=== PATIENT | male | born 1990 | race Caucasian/White ===

== ENCOUNTER → 2022-12-03 08:30 | Outpatient (BNVA) | payer OTHER, SELFPAY | PROVIDERS: Visit Provider Internal Medicine ==

== ENCOUNTER → 2024-02-19 16:02 | Outpatient (BNVA) | payer OTHER, SELFPAY | PROVIDERS: PCP Nurse Practitioner Family; Visit Provider Clinical Nurse Specialist Psychiatric/Mental Health ==

== ENCOUNTER → 2024-03-09 08:52 | Outpatient (BNVA) | payer OTHER, SELFPAY | PROVIDERS: PCP Nurse Practitioner Family; Visit Provider Clinical Nurse Specialist Psychiatric/Mental Health | DX: R55 Syncope and collapse (principal); R51.9 Headache, unspecified; R29.818 Other symptoms and signs involving the nervous system; G44.209 Tension-type headache, unspecified, not intractable; R07.9 Chest pain, unspecified ==

== ENCOUNTER 2024-06-24 15:45 | Emergency (ER) | payer OTHER, SELFPAY ==
--- NOTE | ~2024-06-24 | XR_ITS ---
EXAMINATION: XR CHEST CLINICAL INFORMATION: pain COMPARISON: Chest x-ray 11/29/2022 TECHNIQUE: 2 views of the chest were obtained. FINDINGS: Lungs are well-expanded and clear acute process. There is slight hyperlucency suggestive of air trapping. Heart size and poor vascularity is normal. No gross bony vascularity.. XR/XR chest 2V IMPRESSION: No acute cardiothoracic process seen. Suspect air trapping. No change from previous exam 11/29/2022 Electronically signed by: Adam Jansen MD 06/24/2024 05:28 PM EST
--- NOTE | 2024-06-24 15:47 | ECG_ITS ---
Test Reason : chest pain Blood Pressure : */* mmHG Vent. Rate : 86 BPM Atrial Rate : 86 BPM P-R Int : 148 ms QRS Dur : 88 ms QT Int : 344 ms P-R-T Axes : 48 21 44 degrees QTcB Int : 411 ms Normal sinus rhythm Normal ECG When compared with ECG of 17-Feb-2024 10:50, No significant change was found Referred By: Kartik Roberts Electronically Signed By: KAYLAH PARKS
[2024-06-24 15:57] VITALS: BP 144/96; PULSE 85; RESP 16; TEMP 37.2; O2SAT 98; BMI 25.1
--- NOTE | 2024-06-24 15:58 | ED.GENADULT ---
HPI - General Adult General Chief complaint: Chest Pain Stated complaint: Sharp pain on chest Related Data Previous Rx's ?Medication ?Instructions ?Recorded hydroxyzine HCl 25 mg tablet 25 mg PO TID PRN anxiety #90 tabs 06/10/24 cyclobenzaprine 5 mg tablet 5 mg PO BEDTIME #14 tabs 06/21/24 lidocaine 5 % topical patch 1 patch topical DAILY #30 ea 06/21/24 meloxicam 15 mg tablet 15 mg PO DAILY #30 tabs 06/21/24 atorvastatin 20 mg tablet 20 mg PO BEDTIME #90 tabs 07/08/24 Allergies Allergy/AdvReac Type Severity Reaction Status Date / Time sumatriptan Allergy Severe Tachycardia, Verified 06/24/24 15:59 facial numbness atorvastatin AdvReac Mild pain Verified 06/24/24 15:59 pollen Allergy Unknown rASH, sob Uncoded 05/17/24 15:26 tuna Allergy Unknown anaphylaxis Uncoded 05/17/24 15:26 [facility] Past Medical History Medical History (Updated 08/03/24 @ 17:59 by Kartik Roberts) Chronic pain in left shoulder COVID Tension headache Asthma No known health problems Surgical History S/P appendectomy Family History Family History Father Hypertension Diabetes Substance use disorder Mother No problems noted. Paternal Grandfather Diabetes Paternal Grandfather Substance use disorder Maternal Aunt Substance use disorder Maternal Grandmother Substance use disorder Paternal Aunt Substance use disorder Social History Social History Household Members: Spouse and Family Housing: House Do you presently have visiting nurse or other home services: No Alcohol intake: never Patient Tobacco Use Status: Former Tobacco user e-Cigarette/Vaping Use: Currently Using Second Hand Smoke Exposure: No service: No Current occupational status: employed Cognitive needs: No Hearing needs: No Vision needs: No Physical Exam ED Vital Signs: BMI result Body Mass Index 25.1 Course Course Course Narrative: RMNayeli, this is a rapid medical exam performed by Davon Roberts please refer to primary provider for complete H&P- 34-year-old male presents for evaluation of chest pain. He reports he had lightheaded nauseous while he was flying a drawn earlier today. He still has 7/10 chest pain but it is improved from about an hour ago. Plan for labs, EKG Medical Decision Making Lab Data 06/24/24 16:25 06/24/24 16:25 Labs: Lab Results 06/24/24 Range/Units 16:25 WBC 9.1 (4.8-10.8) X10*3/uL RBC 5.26 (4.60-5.80) X10*6/uL Hgb 14.6 (14.0-18.0) g/dl Hct 42.6 (42.0-52.0) % MCV 81.0 (80.0-98.0) fL MCH 27.8 (27.0-33.0) pg MCHC 34.3 (31.0-36.0) g/dl RDW 11.9 (11.0-16.0) % Plt Count 222 (160-400) X10*3/uL MPV 10.9 (9.4-12.4) fL Immature Gran % (Auto) 0.2 (0.0-0.4) % Neut % (Auto) 55.1 (45-73) % Lymph % (Auto) 39.0 (20-40) % [place] % (Auto) 5.0 (2-11) % Eos % (Auto) 0.5 (0-4) % Baso % (Auto) 0.2 (0-2) % Lymph # (Auto) 3.6 (1.2-4.9) X10*3/uL [place] # (Auto) 0.5 (0.1-1.2) X10*3/uL Eos # (Auto) 0.1 (0.0-0.4) X10*3/uL Baso # (Auto) 0.0 (0.0-0.2) X10*3/uL Abs Immat Gran (auto) 0.02 (0.00-0.03) X10*3/uL Absolute Neuts (auto) 5.0 (2.0-8.3) x10*3/uL Absolute Nucleated RBC 0.000 (0.0-0.012) X10*3/uL Nucleated RBC % (auto) 0.0 (0.0-0.2) /100WBC PT 12.9 H (10.9-12.4) SEC INR 1.1 (0.9-1.1) Sodium 140 (135-145) mmol/L Potassium 3.8 (3.3-5.1) mmol/L Chloride 106 (96-108) mmol/L Carbon Dioxide 26 (22-29) mmol/L Anion Gap 12 (12-20) BUN 13 (9-16) mg/dL Creatinine 1.03 (0.5-1.4) mg/dL Estim Creat Clear Calc 76.5 Estimated GFR > 60 Random Glucose 88 (60-115) mg/dL Calcium 9.8 D (8.4-10.2) mg/dL Total Bilirubin 0.5 (0.0-1.0) mg/dL AST 27 (5-37) U/L ALT 30 (0-40) U/L Alkaline Phosphatase 49 (39-117) U/L Troponin I High Sens < 2.7 (<3.5-35.0) ng/L Total Protein 8.4 H (6.5-8.0) g/dL Albumin 4.8 (3.5-5.0) g/dL Lipase 24 (8-78) U/L Influenza Type A (PCR) NEGATIVE (Negative) Influenza Type B (PCR) NEGATIVE (Negative) RSV RNA Qual (PCR) NEGATIVE (Negative) SARS-CoV-2 RNA (RT-PCR) NEGATIVE (Negative) Discharge Plan Discharge Clinical Impression: Chest pain Patient Disposition: Left W/O Completing Treatment Prescriptions: No Action hydroxyzine HCl 25 mg tablet 25 mg PO TID PRN (Reason: anxiety) Qty: 90 2RF meloxicam 15 mg tablet 15 mg PO DAILY Qty: 30 0RF lidocaine 5 % adhesive patch,medicated 1 patch topical DAILY Qty: 30 0RF Rx Instructions: leave on most painful area for up to 12 hrs cyclobenzaprine 5 mg tablet 5 mg PO BEDTIME Qty: 14 0RF atorvastatin 20 mg tablet 20 mg PO BEDTIME Qty: 90 0RF Discharge Date/Time: 06/24/24 20:57
[2024-06-24 16:31] LABS: MANUAL DIFF FLAG NO
[2024-06-24 16:33] LABS: Basophils Percent Auto 0.2 % (0-2); Eosinophils Absolute Auto 0.1 X10*3/uL (0.0-0.4); Eosinophils Percent Auto 0.5 % (0-4); Hematocrit 42.6 % (42.0-52.0); Hemoglobin 14.6 g/dl (14.0-18.0); Imm Gran Abs Auto 0.02 X10*3/uL (0.00-0.03); Imm Gran Pct Auto 0.2 % (0.0-0.4); Lymphocytes Absolute Auto 3.6 X10*3/uL (1.2-4.9); Mean Corpuscular HGB Conc 34.3 g/dl (31.0-36.0); Mean Corpuscular Hemoglobin 27.8 pg (27.0-33.0); Mean Platelet Volume 10.9 fL (9.4-12.4); Monocytes Absolute Auto 0.5 X10*3/uL (0.1-1.2); Neutrophils Percent Auto 55.1 % (45-73); Platelet Count 222 X10*3/uL (160-400); Red Blood Count 5.26 X10*6/uL (4.60-5.80); Red Cell Distribution Width 11.9 % (11.0-16.0); White Blood Count 9.1 X10*3/uL (4.8-10.8)
[2024-06-24 16:38] LABS: INTERNATIONAL NORM RATIO 1.1 (0.9-1.1); Prothrombin Time 12.9 SEC (10.9-12.4)
[2024-06-24 17:03] LABS: Troponin-I High Sensitivity < 2.7 ng/L (<3.5-35.0)
[2024-06-24 17:04] LABS: Alanine Aminotransferase 30 U/L (0-40); Albumin Level 4.8 g/dL (3.5-5.0); Alkaline Phosphatase 49 U/L (39-117); Anion Gap 12 (12-20); Aspartate Amino Transferase 27 U/L (5-37); Bilirubin Total 0.5 mg/dL (0.0-1.0); Blood Urea Nitrogen 13 mg/dL (9-16); Calcium 9.8 mg/dL (8.4-10.2); Carbon Dioxide 26 mmol/L (22-29); Chloride 106 mmol/L (96-108); Creatinine Clr Calc Pharmacy 76.5; Estimated Glomerular Filt Rate > 60; Glucose Random 88 mg/dL (60-115); Lipase 24 U/L (8-78); Potassium 3.8 mmol/L (3.3-5.1); Sodium 140 mmol/L (135-145); Total Protein 8.4 g/dL (6.5-8.0)
[2024-06-24 17:31] LABS: Influenza A PCR NEGATIVE (Negative); Influenza B PCR NEGATIVE (Negative); Resp Syncy Virus RNA Qual PCR NEGATIVE (Negative); SARS COV2 PCR INHOUSE NEGATIVE (Negative)
== END 2024-06-24 20:57 | disposition left against medical advice (07) ==
PROVIDERS: Physician Assistant; Emergency Provider Emergency Medicine; PCP Nurse Practitioner Family
DX: R07.9 Chest pain, unspecified (principal); Z03.818 Encounter for observation for suspected exposure to other biological agents ruled out
CPT/HCPCS: 0241U; 71046; 80053; 83690; 84484; 85025; 85610; 93005; 99283

== ENCOUNTER → 2024-07-08 09:22 | Outpatient (BNVA) | payer OTHER, SELFPAY | PROVIDERS: PCP Nurse Practitioner Family; Visit Provider Clinical Nurse Specialist Psychiatric/Mental Health | DX: F41.9 Anxiety disorder, unspecified (principal) ==

== ENCOUNTER 2024-08-16 07:00 | Outpatient (RCR) | payer OTHER, SELFPAY ==
--- NOTE | 2024-08-16 07:54 | MHC.PT.DC ---
[facility] [place] Office [place] Office [place] Office [address] Zeina Brandt [address] [phone] F: [phone] F: [phone] F: [phone] F: [phone] Physical Therapy Discharge Report Diagnosis: This is a 34 yo male presenting to skilled PT with a script for L shoulder pain. Date of Surgery: Date of Evaluation: 07/30/24 Date of Discharge: 08/16/24 Treatments to Date: 6 Cancellations to Date: 0 No Shows to Date: 0 Discharge Status: Recommend MD Follow-up Discharge Summary: 08/16: Patient has come to sessions of PT without improvement in pain and he may now have more pain. We talked about calling PCP today to follow up with an MRI. He demos 95 degs flexion, 50 abduction, 45 ER. MMT flexion 4, abduction 3-, ER 4-, IR 5, extension 3-. His pain can range up to a 10/10 at the worst and increases with lighting, pushing and squeezing. I'd recommend following up with PCP for further management, ? MRI. Electronically signed by: Melissa Comer PT Please sign and return to therapist. Thank you for your referral.
== END 2024-09-16 07:44 | disposition home or self-care (01) ==
LOC: HO.PTCHIC 07:00
PROVIDERS: PCP Nurse Practitioner Family; Visit Provider Nurse Practitioner Family
DX: M25.512 Pain in left shoulder (principal); G89.29 Other chronic pain
CPT/HCPCS: 97014; 97110; 97140; 97162

== ENCOUNTER 2024-08-17 18:05 | Emergency (ER) | payer OTHER, SELFPAY ==
--- NOTE | ~2024-08-17 | XR_ITS ---
CLINICAL HISTORY: pain 1 view chest x-ray Comparison: CR/SR - XR CHEST 2V - 06/24/24 16:16 EST Findings: No consolidation or effusion. Normal size heart. No acute fracture. IMPRESSION: 1. No acute findings. This document has been electronically signed by: Erik Carrasco MD on 08/17/2024 19:15:47
--- NOTE | 2024-08-17 18:07 | ECG_ITS ---
Test Reason : cp Blood Pressure : */* mmHG Vent. Rate : 72 BPM Atrial Rate : 72 BPM P-R Int : 136 ms QRS Dur : 94 ms QT Int : 356 ms P-R-T Axes : 54 39 50 degrees QTcB Int : 389 ms Normal sinus rhythm Normal ECG No previous ECGs available Referred By: Generic ED Physician Electronically Signed By: JESUS GONSALES MD
[2024-08-17 18:26] VITALS: BP 118/91; PULSE 74; RESP 18; TEMP 36.7; O2SAT 99; BMI 25.4
--- NOTE | 2024-08-17 18:31 | ED.GENADULT ---
HPI - General Adult General Chief complaint: Chest Pain Stated complaint: Chest pain Related Data Previous Rx's ?Medication ?Instructions ?Recorded hydroxyzine HCl 25 mg tablet 25 mg PO TID PRN anxiety #90 tabs 06/10/24 cyclobenzaprine 5 mg tablet 5 mg PO BEDTIME #14 tabs 06/21/24 lidocaine 5 % topical patch 1 patch topical DAILY #30 ea 06/21/24 meloxicam 15 mg tablet 15 mg PO DAILY #30 tabs 06/21/24 atorvastatin 20 mg tablet 20 mg PO BEDTIME #90 tabs 07/08/24 Allergies Allergy/AdvReac Type Severity Reaction Status Date / Time sumatriptan Allergy Severe Tachycardia, Verified 08/17/24 18:29 facial numbness atorvastatin AdvReac Mild pain Verified 08/17/24 18:29 pollen Allergy Unknown rASH, sob Uncoded 08/11/24 14:51 tuna Allergy Unknown anaphylaxis Uncoded 08/11/24 14:51 [facility] Past Medical History Medical History (Updated 08/17/24 @ 19:34 by MEGAN Cabrales) Chronic pain in left shoulder COVID Tension headache Asthma No known health problems Surgical History (Updated 08/11/24 @ 14:51 by Karon Meier CNA) S/P appendectomy Family History Family History (System 08/11/24 @ 14:51 by Karon Meier CNA) Father Hypertension Diabetes Substance use disorder Mother No problems noted. Paternal Grandfather Diabetes Paternal Grandfather Substance use disorder Maternal Aunt Substance use disorder Maternal Grandmother Substance use disorder Paternal Aunt Substance use disorder Social History Social History (System 08/11/24 @ 14:51 by Karon Meier CNA) Household Members: Spouse and Family Housing: House Do you presently have visiting nurse or other home services: No Alcohol intake: never Patient Tobacco Use Status: Former Tobacco user e-Cigarette/Vaping Use: Currently Using Second Hand Smoke Exposure: No service: No Current occupational status: employed Cognitive needs: No Hearing needs: No Vision needs: No Physical Exam ED Vital Signs: Vital Signs - 24 hr 08/17/24 18:26 Temperature 98.1 F Pulse Rate 74 Respiratory Rate 18 Blood Pressure 118/91 H Pulse Oximetry 99 Oxygen Delivery Method Room Air BMI result Body Mass Index 25.4 Course Course Course Narrative: This is a rapid medical exam performed by Nicole Guallpa PA-C. The patient is a 34-year-old male with a history of anxiety who presents with chest pain. Patient states he has not been feeling well, after work he went home to take a nap. When he woke, he felt as if his ?kids were jumping on his chest?. Patient was not have symptoms at this time. Denies recent cough or cold symptoms, he does not perform significant physical activity that could have caused chest wall strain. He does admit to being anxious. On exam his lungs are clear to auscultation is vitals are stable. We will be screening basic labs cardiac enzymes EKG and chest x-ray. Patient was stable and can return to the waiting room pending his full medical assessment. Medical Decision Making Lab Data 08/17/24 18:39 08/17/24 18:39 Labs: Lab Results 08/17/24 Range/Units 18:39 WBC 9.9 (4.8-10.8) X10*3/uL RBC 5.31 (4.60-5.80) X10*6/uL Hgb 14.8 (14.0-18.0) g/dl Hct 42.9 (42.0-52.0) % MCV 80.8 (80.0-98.0) fL MCH 27.9 (27.0-33.0) pg MCHC 34.5 (31.0-36.0) g/dl RDW 12.1 (11.0-16.0) % Plt Count 225 (160-400) X10*3/uL MPV 11.2 (9.4-12.4) fL Immature Gran % (Auto) 0.2 (0.0-0.4) % Neut % (Auto) 39.8 L (45-73) % Lymph % (Auto) 51.5 H (20-40) % [place] % (Auto) 5.8 (2-11) % Eos % (Auto) 2.1 (0-4) % Baso % (Auto) 0.6 (0-2) % Lymph # (Auto) 5.1 H (1.2-4.9) X10*3/uL [place] # (Auto) 0.6 (0.1-1.2) X10*3/uL Eos # (Auto) 0.2 (0.0-0.4) X10*3/uL Baso # (Auto) 0.1 (0.0-0.2) X10*3/uL Abs Immat Gran (auto) 0.02 (0.00-0.03) X10*3/uL Absolute Neuts (auto) 3.9 (2.0-8.3) x10*3/uL Absolute Nucleated RBC 0.000 (0.0-0.012) X10*3/uL Nucleated RBC % (auto) 0.0 (0.0-0.2) /100WBC Sodium 140 (135-145) mmol/L Potassium 4.1 (3.3-5.1) mmol/L Chloride 109 H (96-108) mmol/L Carbon Dioxide 26 (22-29) mmol/L Anion Gap 9 L (12-20) BUN 14 (9-16) mg/dL Creatinine 0.83 (0.5-1.4) mg/dL Estim Creat Clear Calc 91.0 Estimated GFR > 60 Random Glucose 88 (60-115) mg/dL Calcium 9.5 (8.4-10.2) mg/dL Magnesium 2.1 (1.6-2.6) mg/dL Total Bilirubin 0.3 (0.0-1.0) mg/dL AST 27 (5-37) U/L ALT 38 (0-40) U/L Alkaline Phosphatase 57 (39-117) U/L Troponin I High Sens < 2.7 (<3.5-35.0) ng/L Total Protein 7.6 (6.5-8.0) g/dL Albumin 4.5 (3.5-5.0) g/dL Lipase 24 (8-78) U/L Influenza Type A (PCR) NEGATIVE (Negative) Influenza Type B (PCR) NEGATIVE (Negative) RSV RNA Qual (PCR) NEGATIVE (Negative) SARS-CoV-2 RNA (RT-PCR) NEGATIVE (Negative) Discharge Plan Discharge Clinical Impression: Chest pain Patient Disposition: Left Without Being Seen Prescriptions: No Action hydroxyzine HCl 25 mg tablet 25 mg PO TID PRN (Reason: anxiety) Qty: 90 2RF meloxicam 15 mg tablet 15 mg PO DAILY Qty: 30 0RF lidocaine 5 % adhesive patch,medicated 1 patch topical DAILY Qty: 30 0RF Rx Instructions: leave on most painful area for up to 12 hrs cyclobenzaprine 5 mg tablet 5 mg PO BEDTIME Qty: 14 0RF atorvastatin 20 mg tablet 20 mg PO BEDTIME Qty: 90 0RF Print Language: Georgian
[2024-08-17 18:48] LABS: Basophils Absolute Auto 0.1 X10*3/uL (0.0-0.2); Basophils Percent Auto 0.6 % (0-2); Eosinophils Absolute Auto 0.2 X10*3/uL (0.0-0.4); Eosinophils Percent Auto 2.1 % (0-4); Hematocrit 42.9 % (42.0-52.0); Hemoglobin 14.8 g/dl (14.0-18.0); Imm Gran Abs Auto 0.02 X10*3/uL (0.00-0.03); Imm Gran Pct Auto 0.2 % (0.0-0.4); Lymphocytes Absolute Auto 5.1 X10*3/uL (1.2-4.9); Lymphocytes Percent Auto 51.5 % (20-40); MANUAL DIFF FLAG SCAN; Mean Corpuscular HGB Conc 34.5 g/dl (31.0-36.0); Mean Corpuscular Hemoglobin 27.9 pg (27.0-33.0); Mean Corpuscular Volume 80.8 fL (80.0-98.0); Mean Platelet Volume 11.2 fL (9.4-12.4); Monocytes Absolute Auto 0.6 X10*3/uL (0.1-1.2); Monocytes Percent Auto 5.8 % (2-11); Neutrophils Absolute Auto 3.9 x10*3/uL (2.0-8.3); Neutrophils Percent Auto 39.8 % (45-73); Platelet Count 225 X10*3/uL (160-400); Red Blood Count 5.31 X10*6/uL (4.60-5.80); Red Cell Distribution Width 12.1 % (11.0-16.0); SCAN SMEAR FLAG 1; White Blood Count 9.9 X10*3/uL (4.8-10.8)
[2024-08-17 19:07] LABS: Troponin-I High Sensitivity < 2.7 ng/L (<3.5-35.0)
[2024-08-17 19:10] LABS: Alanine Aminotransferase 38 U/L (0-40); Albumin Level 4.5 g/dL (3.5-5.0); Alkaline Phosphatase 57 U/L (39-117); Anion Gap 9 (12-20); Aspartate Amino Transferase 27 U/L (5-37); Bilirubin Total 0.3 mg/dL (0.0-1.0); Blood Urea Nitrogen 14 mg/dL (9-16); Calcium 9.5 mg/dL (8.4-10.2); Carbon Dioxide 26 mmol/L (22-29); Chloride 109 mmol/L (96-108); Estimated Glomerular Filt Rate > 60; Glucose Random 88 mg/dL (60-115); Lipase 24 U/L (8-78); Magnesium 2.1 mg/dL (1.6-2.6); Potassium 4.1 mmol/L (3.3-5.1); Sodium 140 mmol/L (135-145); Total Protein 7.6 g/dL (6.5-8.0)
[2024-08-17 19:24] LABS: Influenza A PCR NEGATIVE (Negative); Influenza B PCR NEGATIVE (Negative); Resp Syncy Virus RNA Qual PCR NEGATIVE (Negative); SARS COV2 PCR INHOUSE NEGATIVE (Negative)
[2024-08-17 20:24] LABS: SLIDE REVIEW VERIFIED
== END 2024-08-17 21:11 | disposition left against medical advice (07) ==
PROVIDERS: Physician Assistant Medical; Emergency Provider Emergency Medicine; PCP Nurse Practitioner Family
DX: R07.9 Chest pain, unspecified (principal); F41.9 Anxiety disorder, unspecified; Z03.818 Encounter for observation for suspected exposure to other biological agents ruled out
CPT/HCPCS: 0241U; 71045; 80053; 83690; 83735; 84484; 85025; 93005; 99283

== ENCOUNTER → 2024-08-17 18:07 | Outpatient (BNV) | payer OTHER, SELFPAY | PROVIDERS: Emergency Provider Emergency Medicine; PCP Nurse Practitioner Family; Visit Provider Internal Medicine Cardiovascular Disease | DX: R07.9 Chest pain, unspecified (principal) | CPT/HCPCS: 93010 ==

== ENCOUNTER → 2024-08-17 18:28 | Outpatient (BNV) | payer OTHER, SELFPAY | PROVIDERS: PCP Nurse Practitioner Family; Visit Provider Nuclear Medicine | DX: R07.9 Chest pain, unspecified (principal) | CPT/HCPCS: 71045 ==

== ENCOUNTER 2024-08-19 10:17 | Outpatient (AMB) | payer OTHER, SELFPAY ==
--- NOTE | 2024-08-19 09:43 | MHC.OFFVISPS ---
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 Allergies sumatriptan Allergy (Severe, Verified 08/17/24 18:29) Tachycardia, facial numbness atorvastatin Adverse Reaction (Mild, Verified 08/17/24 18:29) pain pollen Allergy (Unknown, Uncoded 08/11/24 14:51) rASH, sob tuna Allergy (Unknown, Uncoded 08/11/24 14:51) anaphylaxis Medication List - Last Reconciled 08/19/24 by Marisol Cuenca APRN atorvastatin 20 mg PO BEDTIME cyclobenzaprine 5 mg PO BEDTIME hydroxyzine HCl 25 mg PO TID PRN lidocaine 5% 1 patch topical DAILY meloxicam 15 mg PO DAILY HPI- Psychiatric Chief Complaint: f/u consultation HPI Narrative: pt reports continue intermittent chest discomfort which triggers fear and anxiety; he begins to obsess about his brother's from heart attack and his chest pain and the echo he had that showed some minimal anomaly. he was at ED 08/17 for chest discomfort and anxiety after 2 hydroxyzine did not help the anxiety. he has tried therapy but feels it is not useful. He tells me he never took any of the prozac, zoloft or clonazepam. He is agreeable to try another medication to manage the anxiety and prevent panic. He wants to see payable processor again but when he called for appt front end driver said he needed referral. I rviewed cardiology report and says he could come back if continues with symptoms. Past Psychiatric History: no previous psych treatment Subjective Subjective Subjective Medication Compliance: Yes Side effects from medications: No Review of Systems Medical Review of Systems: unchanged Mental Status Exam Mental Status Exam Patient Appearance: Well Grooomed and Appropriate Patient Orientation: Person, Place, Time and Situation Level of Consciousness: Awake and Alert Patient Behavior: Appropriate and Cooperative Mood Description: Withdrawn, Sad and Nervous Affect Description: Withdrawn, Sad and Nervous Patient Cognition Impaired: No Ability to Follow Directions: Good Speech Pattern: Clear and Appropriate Memory Description: Intact Hallucinations: None Delusions: Not Present Thought Process: Intact and Goal Oriented Thought Content: positive for Obsessional Thoughts, positive for Goal Oriented and positive for Preoccupation Judgement: Good Telehealth Telehealth Telehealth Platform: Other (please specify) ([email or web address]) Location of provider rendering services: practice address Location of patient: other (in his parked car in the [facility]) Patient Identification confirmed using: Name, : Yes Telehealth method: video Patient verbally consented to treatment: Yes Patient verbally consented to billing insurance company: Yes Patient informed of any privacy concerns related to visit: Yes Minutes spent on Phone/Video with Pt.: 28 Assessment and Plan Assessment & Plan (1) Generalized anxiety disorder with panic attacks: Status: Acute Code(s): F41.1 - Generalized anxiety disorder; F41.0 - Panic disorder [episodic paroxysmal anxiety] (2) Chest pain: Status: Acute Qualifiers: Chest pain type: unspecified Qualified Code(s): R07.9 - Chest pain, unspecified Code(s): R07.9 - Chest pain, unspecified Plan start buspirone 5mg BID follow up in one month Medications: New buspirone 5 mg PO BID 60 tabs 1RF Orders: Referrals Cardiology Referral E78.5 - Hyperlipidemia, unspecified, R07.9 - Chest pain, unspecified Counseling and coordination of Care Pt. Self Management counseling: Maintenance-social rhythm, Mod caffeine/ETOH intake, Muscle relaxation, Nutrition education and improvement and General coping skills Medication management counseling: Effectiveness, Side effects, Dosing range, Duration, Drug interaction and Adherence Diagnosis and Prognosis Counseling: Accuracy of diagnosis, Prognosis over time, Impact of diagnosis on life functions, Impact of family relationship, Problematic behaviors secondary to diagnosis and Adequacy of current interventions Details: I spent 35 minutes reviewing the record, seeing the patient and documenting in the medical record. Counseling provided to the patient/caregiver as outlined below. Addressed patient/caregiver concerns regarding current medication regime including effective adherence. Addressed patient/caregiver concerns regarding diagnosis and prognosis including accuracy of diagnosis, prognosis over time, impact of diagnosis. Addressed patient/caregiver concerns regarding impact of recent stressors. [facility] Medical History Chronic pain in left shoulder COVID Tension headache Asthma No known health problems Surgical History S/P appendectomy Family History (Updated 08/19/24 @ 12:29 by Marisol Cuenca APRN) Father Hypertension Diabetes Substance use disorder Mother No problems noted. Paternal Grandfather Diabetes Paternal Grandfather Substance use disorder Maternal Aunt Substance use disorder Maternal Grandmother Substance use disorder Paternal Aunt Substance use disorder Brother FH: heart attack Social History Household Members: Spouse and Family Housing: House Do you presently have visiting nurse or other home services: No Alcohol intake: never Patient Tobacco Use Status: Former Tobacco user e-Cigarette/Vaping Use: Currently Using Second Hand Smoke Exposure: No service: No Current occupational status: employed Cognitive needs: No Hearing needs: No Vision needs: No Social History: lives with supportive and 4 children ages 7-14. He works FT at [employer]. Substance History: In past ETOH none in 11 yrs Trauma History: yes Coding Level of Care Code Tele Est Pt Level 4 (38991) Diagnoses Generalized anxiety disorder with panic attacks F41.1; F41.0 Chest pain, unspecified type R07.9 Chest pain type: unspecified
== END 2024-08-19 10:17 | disposition home or self-care (01) ==
LOC: HO.HOP 10:17
PROVIDERS: PCP Nurse Practitioner Family; Visit Provider Clinical Nurse Specialist Psychiatric/Mental Health
DX: F41.1 Generalized anxiety disorder (principal); F41.0 Panic disorder [episodic paroxysmal anxiety]; R07.9 Chest pain, unspecified
CPT/HCPCS: 98006

== ENCOUNTER 2024-09-08 11:08 | Outpatient (AMB) | payer OTHER, SELFPAY ==
[2024-09-08 11:24] VITALS: BP 110/68; PULSE 72; BMI 26.2
--- NOTE | 2024-09-08 11:24 | A.OFFVIS_ITS ---
Vital Signs 09/08/24 11:24 Height 5 ft 1 in Weight 138 lb 14.259 oz BMI 26.2 BP 110/68 Blood Pressure Location Lt brachial Position Sitting Pulse 72 Pulse Source Pulse Oximeter Intake Visit Reasons: Follow up- Chest Pain Allergies sumatriptan Allergy (Severe, Verified 08/17/24 18:29) Tachycardia, facial numbness atorvastatin Adverse Reaction (Mild, Verified 08/17/24 18:29) pain pollen Allergy (Unknown, Uncoded 08/11/24 14:51) rASH, sob tuna Allergy (Unknown, Uncoded 08/11/24 14:51) anaphylaxis Medication List - Last Reconciled 09/08/24 by Jeremiah Person MD atorvastatin 20 mg PO BEDTIME buspirone 5 mg PO BID hydroxyzine HCl 25 mg PO TID PRN HPI Comments Details: Cm returns for follow-up. In the past, he was seen regarding chest pains. Random pains without any exertional patterns. He underwent comprehensive workup including echocardiogram/coronary CTA. There was no obvious cardiac etiology for his symptoms. Any case, he is still gets those symptoms off and on. He describes various sensations in the left chest, upper chest extra which can happen any time. He also gets very anxious. Recently seen in consultation regarding chest pain. Random chest pains with and without exertion. Other symptoms like dizziness/room spinning extra. Extremely active at baseline without limitations. Works out as well. No known cardiac issues in the past. Lot of stress in the family as apparently brother has been diagnosed with cancer. Underwent echocardiogram and coronary CT. Exercise The patient no longer partakes in climbing or physical exertions previously necessitated by his job. 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 His exercise limitation by anxiety and sporadic musculoskeletal pain is noted, though the patient's routine physical demands remain unquantified. [facility] Medical History Chronic pain in left shoulder COVID Tension headache Asthma No known health problems Surgical History S/P appendectomy Family History (Updated 08/19/24 @ 12:30 by Marisol Cuenca APRN) Father Hypertension Diabetes Substance use disorder Mother No problems noted. Paternal Grandfather Diabetes Paternal Grandfather Substance use disorder Maternal Aunt Substance use disorder Maternal Grandmother Substance use disorder Paternal Aunt Substance use disorder Brother FH: heart attack Social History Household Members: Spouse and Family Housing: House Do you presently have visiting nurse or other home services: No Alcohol intake: never Patient Tobacco Use Status: Former Tobacco user e-Cigarette/Vaping Use: Currently Using Second Hand Smoke Exposure: No service: No Current occupational status: employed Cognitive needs: No Hearing needs: No Vision needs: No Review of Systems Const Denies weakness ENT Denies dizziness Card Denies chest pain, Denies chest pain with activity, Denies syncope, Denies rapid heart rate, Denies pedal edema, Denies edema, Denies leg edema, Denies lightheadedness, Denies palpitations, Denies dyspnea, Denies dyspnea on exertion and Denies orthopnea Resp Denies cough, Denies dyspnea and Denies dyspnea on exertion GI Denies hematochezia and Denies change in stool character Musc Denies abnormal gait, Denies muscle cramps, Denies muscle weakness, Denies numbness, Denies radiating pain into limb and Denies tingling Neuro Denies abnormal gait, Denies dizziness, Denies syncope, Denies numbness, Denies tingling and Denies weakness Endo Denies palpitations Physical Exam Vital Signs: Last Vital Signs Pulse 72 09/08/24 11:24 BP 110/68 09/08/24 11:24 BMI result Body Mass Index 26.2 Const General: comfortable and no acute distress Orientation/consciousness: patient oriented x3 HEENT Other: Unremarkable Head: Yes normal to inspection Neck Neck: Yes normal visual inspection Chest Chest palpation & inspection: normal inspection of the chest Resp Auscultation: clear to auscultation bilaterally Cardio Palpation: normal PMI Heart sounds: S1 normal heart sound present, S2 normal heart sound present, no gallops, no murmurs and no rubs GI Palpation (GI): Soft to palpation Back/Spine/Pelvis Other: unremarkable Skin General skin exam: no rashes or lesions noted Neuro General: patient oriented x3 Extrem General: Yes normal to inspection Psych Mental Status: mental status grossly normal Assessment & Plan Assessment & Plan (1) Chest pain: Code(s): R07.9 - Chest pain, unspecified Category: Medical Qualifiers: Chest pain type: unspecified Qualified Code(s): R07.9 - Chest pain, unspecified Plan Most recent EKG shows sinus rhythm at 72/Min; no significant ST-T changes and otherwise unremarkable. Normal high sensitivity troponins. In the echocardiogram, described to have low normal LVEF and wall motion abnormalities but to me, wall motion looks okay. In the coronary CTA, no evidence of any hemodynamically significant CAD. No coronary artery calcifications either. Overall, highly atypical symptoms which most likely not cardiac. He is still concerned about the wall motion findings were previously reported and hence we will repeat an echocardiogram to ensure this issues resolved. If indeed there is any obvious findings, we will need to readdress. Otherwise, mainly reassurance. He seems satisfied with the discussion today. Patient was informed and verbally consented to the use of an ambient scribe for clinic note documentation during this visit. Orders: Orders CA echo transthoracic complete Today R07.9 - Chest pain, unspecified Patient Instructions: - Attend the scheduled echocardiogram follow-up for cardiovascular assessment reassurance. - Monitor for any changes in pain patterns or severity and seek care if they worsen. - Manage anxiety through relaxation techniques or professional consultation if i t intensifies. - Avoid physical strains that incite pain or discomfort. - Return to the clinic if new symptoms or concerns develop. Coding Level of Care Code Est Pt Level 3 (71701) Diagnoses Chest pain, unspecified type R07.9 Chest pain type: unspecified
--- OUTSIDE RECORDS SUMMARY | 2024-09-08 13:23 | XMS_ITS | Clinical Summary ---
Author Organization [facility] Address [address] [place] [address] Care Team Providers Care Assistant Designer Name Role Phone Unavailable Primary Care Provider Unavailabl e Social History Tobacco Use Types Packs/Day Years Used Date Smoking Tobacco: Never Assessed Sex and Gender Information Value Date Recorded Sex Assigned at Not on file Legal Sex Male 4:36 PM EDT Gender Identity Not on file Sexual Orientation Not on file Plan of Treatment Health Maintenance Due Date Last Done Comments Hepatitis C Virus Screening 1990 HIV Screening 01/23/2001 DTaP/Tdap/Td Vaccines (1 - Tdap) 01/23/2007 Hepatitis B Vaccines (1 of 3 - 19+ 3-dose series) 01/23/2007 COVID-19 Vaccine (2023-2 5 season) 2024 HPV Vaccines Aged Out No longer eligi ble based on patient's age to complete this topic Pneumococcal Vaccine: Pediat jeff (0-5 Years) and At-Risk Patients (6 to 49 Years) Aged Out No longer eligible b ased on patient's age to complete this topic
== END 2024-09-08 11:46 | disposition home or self-care (01) ==
PROVIDERS: PCP Nurse Practitioner Family; Visit Provider Internal Medicine
DX: R07.9 Chest pain, unspecified (principal)
CPT/HCPCS: 99213

== ENCOUNTER 2024-09-20 11:58 | Outpatient (AMB) | payer OTHER, SELFPAY ==
--- NOTE | 2024-09-20 11:11 | A.OFFPSYCH_ITS ---
Intake Intake Visit Reasons: f/u consultation Allergies sumatriptan Allergy (Severe, Verified 09/20/24 17:05) Tachycardia, facial numbness atorvastatin Adverse Reaction (Mild, Verified 09/20/24 17:05) pain pollen Allergy (Unknown, Uncoded 08/11/24 14:51) rASH, sob tuna Allergy (Unknown, Uncoded 08/11/24 14:51) anaphylaxis Medication List - Last Reconciled 09/20/24 by Marisol Cuenca APRN atorvastatin 20 mg PO BEDTIME buspirone 5 mg PO BID hydroxyzine HCl 25 mg PO TID PRN HPI- Psychiatric Chief Complaint: f/u consultation HPI Narrative: pt struggling with anxiety; not taking buspar regularly. he is taking hydroxyzine prn. 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 he denies SI or Hi. he reports eating well and sleeping well. Past Psychiatric History: no previous psych treatment Subjective Subjective Subjective Medication Compliance: Yes Side effects from medications: No Review of Systems Medical Review of Systems: unchanged Mental Status Exam Mental Status Exam Patient Appearance: Well Grooomed Patient Orientation: Person, Place, Time and Situation Level of Consciousness: Awake and Alert Patient Behavior: Appropriate Mood Description: Anxious Affect Description: Anxious Patient Cognition Impaired: No Ability to Follow Directions: Good Speech Pattern: Clear Memory Description: Intact Hallucinations: None Delusions: Not Present Thought Process: Intact and Goal Oriented Thought Content: positive for Intact and positive for Goal Oriented Judgement: Good Telehealth Telehealth Telehealth Platform: Other (please specify) ([email or web address]) Location of provider rendering services: practice address Location of patient: address on file Patient Identification confirmed using: Name, : Yes Telehealth method: video Patient verbally consented to treatment: Yes Patient verbally consented to billing insurance company: Yes Patient informed of any privacy concerns related to visit: Yes Minutes spent on Phone/Video with Pt.: 20 Assessment and Plan Assessment & Plan (1) Generalized anxiety disorder with panic attacks: Status: Acute Code(s): F41.1 - Generalized anxiety disorder; F41.0 - Panic disorder [episodic paroxysmal anxiety] Plan buspar 5 mg BID hydroxyzine 25mg tid prn anxiety/panic follow up in one month Counseling and coordination of Care Pt. Self Management counseling: Maintenance-social rhythm, Mod caffeine/ETOH intake and Nutrition education and improvement Medication management counseling: Effectiveness, Side effects, Dosing range, Duration, Drug interaction and Adherence Diagnosis and Prognosis Counseling: Accuracy of diagnosis, Prognosis over time, Impact of diagnosis on life functions, Impact of family relationship, Problematic behaviors secondary to diagnosis and Adequacy of current interventions Details: I spent 25 minutes reviewing the record, seeing the patient and documenting in the medical record. Counseling provided to the patient/caregiver as outlined below. Addressed patient/caregiver concerns regarding current medication regime including effective adherence. Addressed patient/caregiver concerns regarding diagnosis and prognosis including accuracy of diagnosis, prognosis over time, impact of diagnosis. Addressed patient/caregiver concerns regarding impact of recent stressors. [facility] Medical History Chronic pain in left shoulder COVID Tension headache Asthma No known health problems Surgical History S/P appendectomy Family History (Updated 08/19/24 @ 12:30 by Marisol Cuenca APRN) Father Hypertension Diabetes Substance use disorder Mother No problems noted. Paternal Grandfather Diabetes Paternal Grandfather Substance use disorder Maternal Aunt Substance use disorder Maternal Grandmother Substance use disorder Paternal Aunt Substance use disorder Brother FH: heart attack Social History Household Members: Spouse and Family Housing: House Do you presently have visiting nurse or other home services: No Alcohol intake: never Patient Tobacco Use Status: Former Tobacco user e-Cigarette/Vaping Use: Currently Using Second Hand Smoke Exposure: No service: No Current occupational status: employed Cognitive needs: No Hearing needs: No Vision needs: No Social History: lives with supportive and 4 children ages 7-14. He works FT at [employer]. Substance History: In past ETOH none in 11 yrs Trauma History: yes Coding Level of Care Code Tele Est Pt Level 3 (70402) Diagnoses Generalized anxiety disorder with panic attacks F41.1; F41.0
--- OUTSIDE RECORDS SUMMARY | 2024-09-20 14:17 | XMS_ITS | Clinical Summary ---
Author Organization [facility] Address [address] [place] [address] Care Team Providers Care Account Installer Name Role Phone Unavailable Primary Care Provider [...]
== END 2024-09-20 11:59 | disposition home or self-care (01) ==
LOC: HO.HOP 11:58
PROVIDERS: PCP Nurse Practitioner Family; Visit Provider Clinical Nurse Specialist Psychiatric/Mental Health
DX: F41.1 Generalized anxiety disorder (principal); F41.0 Panic disorder [episodic paroxysmal anxiety]
CPT/HCPCS: 99213

== ENCOUNTER → 2024-09-20 11:58 | Outpatient (BNVA) | payer OTHER, SELFPAY | PROVIDERS: PCP Nurse Practitioner Family; Visit Provider Clinical Nurse Specialist Psychiatric/Mental Health | DX: F41.9 Anxiety disorder, unspecified (principal); E78.5 Hyperlipidemia, unspecified; R07.9 Chest pain, unspecified ==

== ENCOUNTER 2024-09-20 16:51 | Emergency (ER) | payer OTHER, SELFPAY ==
--- NOTE | 2024-09-20 | ECG_ITS ---
Test Reason : cp Blood Pressure : */* mmHG Vent. Rate : 82 BPM Atrial Rate : 82 BPM P-R Int : 146 ms QRS Dur : 102 ms QT Int : 346 ms P-R-T Axes : 53 33 44 degrees QTcB Int : 404 ms Normal sinus rhythm Minimal voltage criteria for LVH, may be normal variant ( Jamey product ) Borderline ECG When compared with ECG of 17-Aug-2024 18:10, No significant change was found Referred By: Generic ED Physician Electronically Signed By: Raymond Garrido
[2024-09-20 16:58] VITALS: BP 139/87; PULSE 79; RESP 16; TEMP 37.3; O2SAT 99; BMI 26.5
--- NOTE | 2024-09-20 17:05 | ED_ITS ---
HPI - General Adult General Chief complaint: Chest Pain Stated complaint: chest pain since yest morning / nausea Related Data Previous Rx's ?Medication ?Instructions ?Recorded hydroxyzine HCl 25 mg tablet 25 mg PO TID PRN anxiety #90 tabs 06/10/24 atorvastatin 20 mg tablet 20 mg PO BEDTIME #90 tabs 07/08/24 buspirone 5 mg tablet 5 mg PO BID #180 tabs 09/10/24 Allergies Allergy/AdvReac Type Severity Reaction Status Date / Time sumatriptan Allergy Severe Tachycardia, Verified 09/20/24 17:05 facial numbness atorvastatin AdvReac Mild pain Verified 09/20/24 17:05 pollen Allergy Unknown rASH, sob Uncoded 08/11/24 14:51 tuna Allergy Unknown anaphylaxis Uncoded 08/11/24 14:51 PMFSH Past Medical History Medical History Chronic pain in left shoulder COVID Tension headache Asthma No known health problems Surgical History S/P appendectomy Family History Family History (Updated 08/19/24 @ 12:30 by Marisol Cuenca APRN) Father Hypertension Diabetes Substance use disorder Mother No problems noted. Paternal Grandfather Diabetes Paternal Grandfather Substance use disorder Maternal Aunt Substance use disorder Maternal Grandmother Substance use disorder Paternal Aunt Substance use disorder Brother FH: heart attack Social History Social History Household Members: Spouse and Family Housing: House Do you presently have visiting nurse or other home services: No Alcohol intake: never Patient Tobacco Use Status: Former Tobacco user e-Cigarette/Vaping Use: Currently Using Second Hand Smoke Exposure: No Advance Directives: No Advance Directives Information Provided: No Do you have a plan to hurt others: No Plan service: No Current occupational status: employed Cognitive needs: No Hearing needs: No Vision needs: No Physical Exam ED Vital Signs: Vital Signs - 24 hr 09/20/24 16:58 Temperature 99.2 F Pulse Rate 79 Respiratory Rate 16 Blood Pressure 139/87 Pulse Oximetry 99 Oxygen Delivery Method Room Air BMI result Body Mass Index 26.5 Course Course Course Narrative: RME, this is a rapid medical exam performed by Davon Roberts please refer to primary provider for complete H&P- 34-year-old male history of anxiety, hyperlipidemia, GERD presents for evaluation of chest pain. He states this feels different in his anxiety, EKG and labs ordered. The patient appears well Medical Decision Making Lab Data 09/20/24 17:11 09/20/24 17:11 Labs: Lab Results 09/20/24 Range/Units 17:11 WBC 10.6 (4.8-10.8) X10*3/uL RBC 5.34 (4.60-5.80) X10*6/uL Hgb 15.0 (14.0-18.0) g/dl Hct 42.8 (42.0-52.0) % MCV 80.1 (80.0-98.0) fL MCH 28.1 (27.0-33.0) pg MCHC 35.0 (31.0-36.0) g/dl RDW 11.8 (11.0-16.0) % Plt Count 243 (160-400) X10*3/uL MPV 10.8 (9.4-12.4) fL Immature Gran % (Auto) 0.2 (0.0-0.4) % Neut % (Auto) 49.1 (45-73) % Lymph % (Auto) 43.2 H (20-40) % [place] % (Auto) 5.5 (2-11) % Eos % (Auto) 1.6 (0-4) % Baso % (Auto) 0.4 (0-2) % Lymph # (Auto) 4.6 (1.2-4.9) X10*3/uL Huntington # (Auto) 0.6 (0.1-1.2) X10*3/uL Eos # (Auto) 0.2 (0.0-0.4) X10*3/uL Baso # (Auto) 0.0 (0.0-0.2) X10*3/uL Abs Immat Gran (auto) 0.02 (0.00-0.03) X10*3/uL Absolute Neuts (auto) 5.2 (2.0-8.3) x10*3/uL Absolute Nucleated RBC 0.000 (0.0-0.012) X10*3/uL Nucleated RBC % (auto) 0.0 (0.0-0.2) /100WBC Sodium 137 (135-145) mmol/L Potassium 4.0 (3.3-5.1) mmol/L Chloride 105 (96-108) mmol/L Carbon Dioxide 22 (22-29) mmol/L Anion Gap 14 (12-20) BUN 12 (9-16) mg/dL Creatinine 0.85 (0.5-1.4) mg/dL Estim Creat Clear Calc 96.5 Estimated GFR > 60 Random Glucose 88 (60-115) mg/dL Calcium 9.5 (8.4-10.2) mg/dL Magnesium 2.1 (1.6-2.6) mg/dL Total Bilirubin 0.3 (0.0-1.0) mg/dL AST 22 (5-37) U/L ALT 34 (0-40) U/L Alkaline Phosphatase 60 (39-117) U/L Troponin I High Sens < 2.7 (<3.5-35.0) ng/L Total Protein 8.1 H (6.5-8.0) g/dL Albumin 4.6 (3.5-5.0) g/dL Lipase 28 (8-78) U/L Influenza Type A (PCR) NEGATIVE (Negative) Influenza Type B (PCR) NEGATIVE (Negative) RSV RNA Qual (PCR) NEGATIVE (Negative) SARS-CoV-2 RNA (RT-PCR) NEGATIVE (Negative) Discharge Plan Discharge Clinical Impression: Chest pain Patient Disposition: Left W/O Completing Treatment Prescriptions: No Action buspirone 5 mg tablet 5 mg PO BID Qty: 180 1RF hydroxyzine HCl 25 mg tablet 25 mg PO TID PRN (Reason: anxiety) Qty: 90 2RF atorvastatin 20 mg tablet 20 mg PO BEDTIME Qty: 90 0RF Discharge Date/Time: 09/20/24 20:22
[2024-09-20 17:17] LABS: MANUAL DIFF FLAG NO
[2024-09-20 17:18] LABS: Basophils Percent Auto 0.4 % (0-2); Eosinophils Absolute Auto 0.2 X10*3/uL (0.0-0.4); Eosinophils Percent Auto 1.6 % (0-4); Hematocrit 42.8 % (42.0-52.0); Imm Gran Abs Auto 0.02 X10*3/uL (0.00-0.03); Imm Gran Pct Auto 0.2 % (0.0-0.4); Lymphocytes Absolute Auto 4.6 X10*3/uL (1.2-4.9); Lymphocytes Percent Auto 43.2 % (20-40); Mean Corpuscular Hemoglobin 28.1 pg (27.0-33.0); Mean Corpuscular Volume 80.1 fL (80.0-98.0); Mean Platelet Volume 10.8 fL (9.4-12.4); Monocytes Absolute Auto 0.6 X10*3/uL (0.1-1.2); Monocytes Percent Auto 5.5 % (2-11); Neutrophils Absolute Auto 5.2 x10*3/uL (2.0-8.3); Neutrophils Percent Auto 49.1 % (45-73); Platelet Count 243 X10*3/uL (160-400); Red Blood Count 5.34 X10*6/uL (4.60-5.80); Red Cell Distribution Width 11.8 % (11.0-16.0); White Blood Count 10.6 X10*3/uL (4.8-10.8)
[2024-09-20 17:43] LABS: Troponin-I High Sensitivity < 2.7 ng/L (<3.5-35.0)
[2024-09-20 17:44] LABS: Alanine Aminotransferase 34 U/L (0-40); Albumin Level 4.6 g/dL (3.5-5.0); Anion Gap 14 (12-20); Aspartate Amino Transferase 22 U/L (5-37); Bilirubin Total 0.3 mg/dL (0.0-1.0); Blood Urea Nitrogen 12 mg/dL (9-16); Calcium 9.5 mg/dL (8.4-10.2); Carbon Dioxide 22 mmol/L (22-29); Chloride 105 mmol/L (96-108); Creatinine Clr Calc Pharmacy 96.5; Estimated Glomerular Filt Rate > 60; Glucose Random 88 mg/dL (60-115); Lipase 28 U/L (8-78); Magnesium 2.1 mg/dL (1.6-2.6); Sodium 137 mmol/L (135-145); Total Protein 8.1 g/dL (6.5-8.0)
[2024-09-20 17:55] LABS: Influenza A PCR NEGATIVE (Negative); Influenza B PCR NEGATIVE (Negative); Resp Syncy Virus RNA Qual PCR NEGATIVE (Negative); SARS COV2 PCR INHOUSE NEGATIVE (Negative)
[2024-09-20 18:13] LABS: Alkaline Phosphatase 60 U/L (39-117)
--- OUTSIDE RECORDS SUMMARY | 2024-09-20 20:04 | XMS_ITS | Clinical Summary ---
Author Organization [facility] Address [address] [place] [address] Care Team Providers Care Pipefitter Welder Name Role Phone Unavailable Primary Care Provider [...]
== END 2024-09-20 20:22 | disposition left against medical advice (07) ==
PROVIDERS: Physician Assistant; Emergency Provider Emergency Medicine; PCP Nurse Practitioner Family
DX: R07.89 Other chest pain (principal); R11.0 Nausea; Z87.891 Personal history of nicotine dependence; Z03.818 Encounter for observation for suspected exposure to other biological agents ruled out; Z79.899 Other long term (current) drug therapy
CPT/HCPCS: 0241U; 80053; 83690; 83735; 84484; 85025; 93005; 99283

== ENCOUNTER → 2024-09-20 16:55 | Outpatient (BNV) | payer OTHER, SELFPAY | PROVIDERS: Emergency Provider Emergency Medicine; PCP Nurse Practitioner Family; Visit Provider Internal Medicine Cardiovascular Disease | DX: R07.9 Chest pain, unspecified (principal) | CPT/HCPCS: 93010 ==

== ENCOUNTER → 2024-10-05 07:56 | Outpatient (REF) | payer OTHER, SELFPAY ==
--- OUTSIDE RECORDS SUMMARY | 2024-10-05 07:58 | XMS_ITS | Clinical Summary ---
Author Organization [facility] Address [address] [place] [address] Care Team Providers Care Transmission Technician Name Role Phone Unavailable Primary Care Provider [...]
--- NOTE | 2024-10-05 07:59 | CA_ITS ---
Transthoracic Echocardiogram Patient (Last, First, Middle): Cm Chaidez L Gender: Male Date of : 1990 Age: 34 Procedure Date: 10/05/2024 Procedure Type: Transthoracic Echocardiogram Location: OP Height: 154.94 cm Weight: 63.5 kg BSA: 1.62 m2 Heart Rate: 61 bpm BP: 120 / 74 mmHg Social Services Coordinator: MARCIN Referring MD: Jeremiah Person MD Rn Transitional Care: David Davis MD Symptoms: R07.9 - Chest pain, unspecified Study Quality: Adequate ECG Rhythm: Sinus Conclusions: - Essentially normal study Findings Left Ventricle Normal left ventricular size, thickness, and systolic function. The visually estimated ejection fraction is between 55-60%. Spectral Doppler is indicative of a normal filling pattern. Right Ventricle Normal right ventricular cavity size and systolic function. Atria Both atria are normal in size. There is no evidence of interatrial shunt. Aortic Valve Normal aortic valve structure and function. There is no aortic valve stenosis. There is no aortic valve regurgitation. Mitral Valve Normal mitral valve structure and function. There is trace mitral valve regurgitation. There is no mitral valve stenosis. Pulmonic Valve The pulmonic valve is likely normal. Tricuspid Valve Normal tricuspid valve structure. Tricuspid regurgitation envelope is inadequate for calculation of right ventricular systolic pressure. Normal right atrial pressure. Great Vessels All visible segments of the aorta are normal in size. The pulmonary artery was not well visualized. Venous The inferior vena cava is normal in size and collapses greater than 50% with inspiration. Pericardium/Pleural There is no evidence of pericardial effusion. Measurements 2D Linear Measurements IVSd: 0.67 0.6-0.9/0.6-1.0 cm LVIDd: 4.95 3.9-5.3/4.2-5.9 cm LVIDd Index: 3.06 2.4-3.2/2.2-3.1 cm/m2 LVIDs: 3.56 2.0-3.6 cm LVPWd: 0.71 0.7-1.1 cm LA Diam: 3.10 2.7-3.8/3.0-4.0 cm LAIDs Index: 1.91 1.5-2.3 cm/m2 LV Mass: 136.89 67-162/88-224 g LV Mass Index: 84.50 43-95/49-115 g/m2 LVOT Diam: 2.30 3.0+(-)1.3 cm 2D Systolic Function EF 4C: 56.00 >55% EF 2C: 55.50 >55% EF BiP: 54.70 >55% Mitral Valve MV Pk E: 0.57 MV PK A: 0.45 MV Decel Time: 164.00 E/A: 1.30 E'Lateral: 11.20 E'Medial: 7.29 E/E' Med: 7.80 E/E' Lat: 5.10 PHT: 48.00 MVA PHT: 4.58 Decel Holt: 3.49 Aortic Valve AoV Pk Kwesi: 0.85 AoV Pk Grad: 3.00 MIREYA: 3.95 LVOT LVOT Pk Kwesi: 0.79 LVOT Mn Kwesi: 0.57 LVOT VTI: 0.15 LVOT Pk Grad: 3.00 LVOT Mn Grad: 2.00 LVOT Diam: 2.30 LVOT Area: 4.15 Diastolic Function MV Pk E: 0.57 MV Pk A: 0.45 E/A: 1.30 E'Medial: 7.29 E/E' Med: 7.80 E' Laterial: 11.20 E/E' Lat: 5.10 Right Ventricle TAPSE (mm): 15.20 TVS' Kwesi: 11.30 Tricuspid Valve RA Press: 3.00 Great Vessels Aorta Sinus of Valsalva: 3.20 2.0-3.5 cm Ao Asc: 2.80 2.1-3.4 cm Pulmonary Veins Pulm Vein S/D 0.70 Pulmonary Valve PV Pk Kwesi: 0.80 Peak PV Grad: 3.00 Updated in Other Vendor System with Status of Final David Davis MD electronically signed on 10/06/2024 4:53:02 PM with status of Final
== END ==
LOC: HO.CARD 07:56
PROVIDERS: PCP Nurse Practitioner Family; Visit Provider Internal Medicine
DX: R07.9 Chest pain, unspecified (principal)
CPT/HCPCS: 93306

== ENCOUNTER → 2024-10-05 07:59 | Outpatient (BNV) | payer OTHER, SELFPAY | PROVIDERS: PCP Nurse Practitioner Family; Visit Provider Internal Medicine Cardiovascular Disease | DX: R07.89 Other chest pain (principal) | CPT/HCPCS: 93306 ==

== ENCOUNTER 2024-10-14 11:57 | Outpatient (AMB) | payer OTHER, SELFPAY ==
--- NOTE | 2024-10-14 11:04 | A.OFFPSYCH_ITS ---
Intake Intake Visit Reasons: f/u consultation Pediatric Nephrologist Required: No Allergies sumatriptan Allergy (Severe, Verified 09/20/24 17:05) Tachycardia, facial numbness atorvastatin Adverse Reaction (Mild, Verified 09/20/24 17:05) pain pollen Allergy (Unknown, Uncoded 08/11/24 14:51) rASH, sob tuna Allergy (Unknown, Uncoded 08/11/24 14:51) anaphylaxis Medication List - Last Reconciled 10/14/24 by Marisol Cuenca APRN atorvastatin 20 mg PO BEDTIME buspirone 5 mg PO BID hydroxyzine HCl 25 mg PO TID PRN HPI- Psychiatric Chief Complaint: f/u consultation HPI Narrative: pt reports much improvement; he is taking the buspar consistently with good effect. he denies side effects; he reports he has not had significant anxiety or panic x at least 1 month. He saw petroleum inspector supervisor juan miguel nd feels good abou t results. he is no longer worried about his cardiac status. he reports things are going well with work and at home; his finished [employer] and started a job. He feel mmuch less anxious and overwhelmed. he is eating well and hydrating. He denies SI or HI. Past Psychiatric History: no previous psych treatment Subjective Subjective Subjective Medication Compliance: Yes Side effects from medications: No Review of Systems Medical Review of Systems: unchanged Mental Status Exam Mental Status Exam Patient Appearance: Well Grooomed and Appropriate Patient Orientation: Person, Place, Time and Situation Level of Consciousness: Awake and Appropriate Patient Behavior: Appropriate and Cooperative Mood Description: Calm and Happy Affect Description: Calm and Happy Patient Cognition Impaired: No Ability to Follow Directions: Good Speech Pattern: Clear, Appropriate and Coherent Memory Description: Intact Hallucinations: None Delusions: Not Present Thought Process: Intact and Goal Oriented Thought Content: positive for Intact and positive for Goal Oriented Judgement: Good Results Reviewed Results Reviewed: reviewed diagnostic and cardiaology note reviewed ED note from 09/20/24 Telehealth Telehealth Telehealth Platform: Other (please specify) ([email or web address]) Location of provider rendering services: practice address Location of patient: address on file Patient Identification confirmed using: Name, : Yes Telehealth method: video Patient verbally consented to treatment: Yes Patient verbally consented to billing insurance company: Yes Patient informed of any privacy concerns related to visit: Yes Minutes spent on Phone/Video with Pt.: 30 Assessment and Plan Assessment & Plan (1) Generalized anxiety disorder with panic attacks: Status: Acute Code(s): F41.1 - Generalized anxiety disorder; F41.0 - Panic disorder [episodic paroxysmal anxiety] Plan continue medications as per below follow up with PCP may return for consult in future if needed Medications: Refilled buspirone 5 mg PO BID 180 tabs 1RF hydroxyzine HCl 25 mg PO TID PRN 90 tabs 2RF anxiety F41.9 - Anxiety disorder, unspecified Counseling and coordination of Care Pt. Self Management counseling: Exercise, Maintenance-social rhythm, Mindfulness, Mod caffeine/ETOH intake, Nutrition education and improvement, Sleep hygiene, Behavior activation, General coping skills and Problem solving Medication management counseling: Effectiveness, Side effects, Dosing range, Duration, Drug interaction and Adherence Diagnosis and Prognosis Counseling: Accuracy of diagnosis, Prognosis over time, Impact of diagnosis on life functions, Impact of family relationship and Problematic behaviors secondary to diagnosis Details: I spent 40 minutes reviewing the record, seeing the patient and documenting in the medical record. Counseling provided to the patient/caregiver as outlined below. Addressed patient/caregiver concerns regarding current medication regime including effective adherence. Addressed patient/caregiver concerns regarding diagnosis and prognosis including accuracy of diagnosis, prognosis over time, impact of diagnosis. Addressed patient/caregiver concerns regarding impact of recent stressors. [facility] Medical History Chronic pain in left shoulder COVID Tension headache Asthma No known health problems Surgical History S/P appendectomy Family History (Updated 08/19/24 @ 12:30 by Marisol Cuenca APRN) Father Hypertension Diabetes Substance use disorder Mother No problems noted. Paternal Grandfather Diabetes Paternal Grandfather Substance use disorder Maternal Aunt Substance use disorder Maternal Grandmother Substance use disorder Paternal Aunt Substance use disorder Brother FH: heart attack Social History Household Members: Spouse and Family Housing: House Do you presently have visiting nurse or other home services: No Alcohol intake: never Patient Tobacco Use Status: Former Tobacco user e-Cigarette/Vaping Use: Currently Using Second Hand Smoke Exposure: No service: No Current occupational status: employed Cognitive needs: No Hearing needs: No Vision needs: No Social History: lives with supportive and 4 children ages 7-14. He works FT at [employer]. Substance History: In past ETOH none in 11 yrs Trauma History: yes Coding Level of Care Code Tele Est Pt Level 4 (52290) Diagnoses Generalized anxiety disorder with panic attacks F41.1; F41.0
--- OUTSIDE RECORDS SUMMARY | 2024-10-14 12:23 | XMS_ITS | Clinical Summary ---
Author Organization [facility] Address [address] [place] [address] Care Team Providers Care Manager Integrity Name Role Phone Unavailable Primary Care Provider [...]
== END 2024-10-14 11:57 | disposition home or self-care (01) ==
LOC: HO.HOP 11:57
PROVIDERS: PCP Nurse Practitioner Family; Visit Provider Clinical Nurse Specialist Psychiatric/Mental Health
DX: F41.1 Generalized anxiety disorder (principal); F41.0 Panic disorder [episodic paroxysmal anxiety]
CPT/HCPCS: 99214

== ENCOUNTER → 2024-10-14 11:57 | Outpatient (BNVA) | payer OTHER, SELFPAY | PROVIDERS: PCP Nurse Practitioner Family; Visit Provider Clinical Nurse Specialist Psychiatric/Mental Health | DX: F41.9 Anxiety disorder, unspecified (principal); E78.5 Hyperlipidemia, unspecified; R07.9 Chest pain, unspecified ==

== ENCOUNTER 2024-11-15 14:13 | Outpatient (AMB) | payer OTHER, SELFPAY ==
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
[2024-11-15 14:22] VITALS: BP 110/60; PULSE 70; TEMP 36.6; O2SAT 98; BMI 27.1
--- OUTSIDE RECORDS SUMMARY | 2024-11-15 15:46 | XMS_ITS | Clinical Summary ---
Author Organization [facility] Address [address] [place] [address] Care Team Providers Care Production Control Supervisor Name Role Phone Unavailable Primary Care Provider [...]
== END 2024-11-15 14:57 | disposition home or self-care (01) ==
PROVIDERS: PCP Nurse Practitioner Family; Visit Provider Nurse Practitioner Family
DX: H60.502 Unspecified acute noninfective otitis externa, left ear (principal); H10.9 Unspecified conjunctivitis; J30.1 Allergic rhinitis due to pollen

== ENCOUNTER → 2024-11-15 14:13 | Outpatient (BNVA) | payer OTHER, SELFPAY | PROVIDERS: PCP Nurse Practitioner Family; Visit Provider Nurse Practitioner Family | DX: Z13.89 Encounter for screening for other disorder (principal) ==

== ENCOUNTER 2025-01-03 08:12 | Outpatient (AMB) | payer OTHER, SELFPAY ==
[2025-01-03 08:51] VITALS: BP 106/78; PULSE 70; TEMP 36.6; O2SAT 98; BMI 27.4
--- NOTE | 2025-01-03 08:51 | AM.OFFWIN_ITS ---
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 - Reports severe sore throat and signifi cant fatigue. - Ear pain is noted in the left ear. - Denies congestion, occasionally vapes, and has reduced usage. - Quit smoking and drinking eight years ago, finds vaping difficult to quit. - Vapes 4 times a day - He denies fever, chills, CP, SOB, abd pain, n/v/d, or cough. - Has no sick contacts or travel. Physical Exam General: Cooperative, healthy appearing, comfortable and no acute distress Orientation/consciousness: Patient oriented x3 Limitations: No limitations Head: Normal to inspection Ears: Hearing grossly normal bilaterally, external ears normal and TM's normal bilaterally. Nose: Normal external nose present, normal nares present, and no nasal discharge present. Face and sinus: Sinuses nontender to palpation. Mouth: Normal oral and palatal mucosa present and moist mucous membranes noted. Throat: Tonsils normal. Uvula is midline. Posterior oropharynx with erythema and no exudates. Eyes: Appearance normal, both eyes and all related structures Neck: Normal visual inspection, full ROM. No lymphadenopathy noted. Respiratory: Clear to auscultation bilaterally. Normal respiratory effort, able to speak in complete sentences. No respiratory distress, not tachypneic, no tripod positioning and no use of accessory muscles. Cardiovascular: Regular rate and rhythm. Normal S1 and S2 Skin: No rashes or lesions noted Patient was informed and verbally consented to the use of an ambient scribe for clinic note documentation during this visit [facility] Medical History (Updated 11/15/24 @ 15:21 by Viviana Rizvi NP) Bacterial conjunctivitis of left eye Otitis externa Chronic pain in left shoulder COVID Tension headache Asthma No known health problems Surgical History S/P appendectomy Family History (Updated 08/19/24 @ 12:30 by Marisol Cuenca APRN) Father Hypertension Diabetes Substance use disorder Mother No problems noted. Paternal Grandfather Diabetes Paternal Grandfather Substance use disorder Maternal Aunt Substance use disorder Maternal Grandmother Substance use disorder Paternal Aunt Substance use disorder Brother FH: heart attack Social History Household Members: Spouse and Family Housing: House Do you presently have visiting nurse or other home services: No Alcohol intake: never Patient Tobacco Use Status: Former Tobacco user e-Cigarette/Vaping Use: Currently Using Second Hand Smoke Exposure: No service: No Current occupational status: employed Cognitive needs: No Hearing needs: No Vision needs: No Review of Systems Const All systems reviewed & are unremarkable except as noted in HPI and below Physical Exam Vital Signs: Last Vital Signs Temp 97.9 F 01/03/25 08:51 Pulse 70 01/03/25 08:51 BP 106/78 01/03/25 08:51 Pulse Ox 98 01/03/25 08:51 Oxygen Delivery Method Room Air 01/03/25 08:51 BMI result Body Mass Index 27.4 Assessment & Plan Assessment & Plan (1) Sore throat: Code(s): J02.9 - Acute pharyngitis, unspecified Plan Most likely strep vs URI vs covid vs flu vs RSV vs viral illness Rapid in the office was negative Plan - Recommended decongestant and Flonase daily - tylenol or motrin as needed - diet as tolerated - drink lots of fluids - Ordered COVID-19, influenza, and RSV testing - Advised to avoid close contact with clients until test results are confirmed. - VSS, pt well appearing Orders: Orders AMB Rapid Strep Screen Today Z13.9 - Encounter for screening, unspecified Medications: New cetirizine-pseudoephedrine 5-120 mg ER 1 tab PO BID 14 tabs 0RF 7 days fluticasone propionate 50 mcg/actuation administer into each nostril 1 spray intranasal Q12H 16 grams 0RF Coding Level of Care Code Est Pt Level 3 (87039) Diagnoses Sore throat J02.9
== END 2025-01-03 09:48 | disposition home or self-care (01) ==
PROVIDERS: PCP Nurse Practitioner Family; Visit Provider Physician Assistant Medical
DX: J02.9 Acute pharyngitis, unspecified (principal); Z13.9 Encounter for screening, unspecified

== ENCOUNTER 2025-01-03 08:12 | Outpatient (REF) | payer OTHER, SELFPAY ==
--- OUTSIDE RECORDS SUMMARY | 2025-01-03 13:20 | XMS_ITS | Clinical Summary ---
Author Organization [facility] Address [address] [place] [address] Care Team Providers Care Dietitian Consultant Name Role Phone Unavailable Primary Care Provider [...]
--- OUTSIDE RECORDS SUMMARY | 2025-01-03 13:20 | XMS_ITS | Clinical Summary ---
Author Organization [facility] Address [address] [address] Phone Care Team Providers Care Natural Developer Name Role Phone Stephen Rogers NP Primary Care Provider + Allergies Active Allergy Reactions Criticality Noted Date Comments Amitriptyline 10/31/2021 Sumatriptan 10/31/2021 Social History Tobacco Use Types Packs/Day Years Used Date Smoking Tobacco: Never Assessed Education Answer Date Recorded Are you interested in more education? Not on michel e 09/20/2022 Are you concerned about learning? Not on file 09/20/2022 No 09/20/2022 No 09/20/2022 Digital Access Answer Date Recorded No 10/18/2022 No 10/18/2022 Reliable internet access at home? Not on file 10/18/2022 Device with a working camera? Not on file Intimate Partner Violence Answer Date R ecorded Are you denied basic needs s uch as food, clothing, or medical care? No 12/30/2023 In the past 12 months have y ou been in a relationship with a person who hurts, threatens, or tries to control you? No 12/30/2023 Are you denied basic needs s uch as food, clothing, or medical care? No 12/30/2023 In the past 12 months have y ou been in a relationship with a person who hurts, threatens, or tries to control you? No 12/30/2023 Sex and Gender Information Value Date Recorded Sex Assigned at Not on file Legal Sex Male 9:08 PM EDT Gender Identity Not on file Sexual Orientation Not on file Last Filed Vital Signs Vital Sign Reading Time Taken Comments Blood Pressure 133/88 12/30/2023 5:56 PM EDT Pulse 60 12/30/2023 5:56 PM EDT Temperature 36.5 C (97.7 F) 12/30/2023 5:56 PM EDT Respiratory Rate 16 12/30/2023 5:56 PM EDT Oxygen Saturation 100% 12/30/2023 5:56 PM EDT Inhaled Oxygen Concentration - - Weight 70.3 kg (155 lb) 12/30/2023 3:57 PM EDT Height 157.5 cm (5' 2 ) 12/30/2023 3:57 PM EDT Body Mass Index 28.35 12/30/2023 3:57 PM EDT Plan of Treatment Health Maintenance Due Date Last Done Comments Adult Td,Tdap Booster 1988 LIPID PANEL 1988 DEPRESSION SCREENING 2000 SMOKING Hx and SMOKELESS TOB ACCO SCREENING 01/23/2001 HEPATITIS C SCREENING 01/23/2006 HIV ONE-TIME SCREENING (18-6 5 YEARS) 01/23/2006 COVID-19 VACCINE ( - 2023-2 5 season) 2024 SCREENING FOR DIABETES 12/29/2026 12/30/2023 HEPATITIS A VACCINES Aged Out No long er eligible based on patient's age to complete this topic HIB VACCINES Aged Out No longer eligi ble based on patient's age to complete this topic MENINGOCOCCAL VACCINES (ACWY) Aged Out No longer eligible based on patient's age to complete this topic MENINGOCOCCAL VACCINES (B) Aged Out N o longer eligible based on patient's age to complete this topic PNEUMOCOCCAL VACCINES (0-49 years) Aged Out No longer eligible based on patient's age to complete this topic Medical Devices Not on file Insurance [facility] ponUp [facility] [address] [address] [address] ponUp [facility] Care Teams Natural Developer Relationship Specialty Start Date End Date Stephen Rogers NP [facility] [place] [address] PCP - General Family Medicine 10/31/21 Additional Source Comments The information contained in this document represents components of the legal health record. It is not the complete legal health record.[facility]
[2025-01-03 14:54] LABS: Resp Syncy Virus RNA Qual PCR NEGATIVE (Negative); SARS COV2 PCR INHOUSE NEGATIVE (Negative)
== END 2025-01-03 08:13 | disposition home or self-care (01) ==
LOC: HO.LNP 08:12
PROVIDERS: PCP Nurse Practitioner Family; Visit Provider Physician Assistant Medical
DX: J02.9 Acute pharyngitis, unspecified (principal); R09.89 Other specified symptoms and signs involving the circulatory and respiratory systems; Z87.891 Personal history of nicotine dependence; Z13.89 Encounter for screening for other disorder
CPT/HCPCS: 87637; 87880

== ENCOUNTER 2025-01-27 08:30 | Outpatient (AMB) | payer OTHER, SELFPAY ==
--- NOTE | 2025-01-27 08:37 | A.OFFPC_ITS ---
Vital Signs 01/27/25 08:38 Height 5 ft 1 in Weight 145 lb BMI 27.4 BP 120/74 Blood Pressure Location Lt brachial Position Sitting Respiration 16 Pulse 72 Pulse Source Pulse Oximeter Pulse Oximetry (%) 97 Oxygen Delivery Method Room Air Intake Visit Reasons: Annual PE Architect Internship Required: No Accompanied by: Self / Same As Patient Allergies sumatriptan Allergy (Severe, Verified 01/27/25 08:39) Tachycardia, facial numbness atorvastatin Adverse Reaction (Mild, Verified 01/27/25 08:39) pain pollen Allergy (Unknown, Uncoded 08/11/24 14:51) rASH, sob tuna Allergy (Unknown, Uncoded 08/11/24 14:51) anaphylaxis Medication List - Last Reconciled 01/27/25 by JORY Bullock- atorvastatin 20 mg PO BEDTIME cetirizine-pseudoephedrine 5-120 mg ER 1 tab PO BID 7 days fluticasone propionate 50 mcg/actuation 1 spray intranasal Q12H hydroxyzine HCl 25 mg PO TID PRN Tobacco use date assessed: 01/27/25 Dental Screening Dental Screen Date: 01/27/25 Did you have a dental visit in the last 12 months?: No Did you have a dental problem in the last 6 months where you did not have access to dental care?: No Was dental information given to patient?: Patient has dentist HPI Annual PE HPI Details History of Present Illness The patient is a 35-year-old male presenting with a physical exam and management of chronic conditions. The patient reports a history of anxiety, which has been fairly well controlled with the use of hydroxyzine for panic attacks. He notes increased anxiety ass ociated with the use of vaping and plans to quit, substituting with gum to address oral fixation. The patient has a chronic left shoulder problem that began approximately two years ago following a fall from a ladder, where he caught himself, possibly resulting in a labral tear/rotator cuff tear. He underwent eight weeks of physical therapy, which was unsuccessful, and currently exhibits a positive Keshia's test on the left shoulder. Health Maintenance Social History - Substance use: Reports vaping, plans t o quit and use gum for oral fixation Review of Systems - Cardiovascular: Denies chest pain - Respiratory: Denies dyspnea - Gastrointestinal: Denies abdominal oren n, blood in stool, constipation, diarrhea - Psychiatric: Reports anxiety, increase d with vaping Physical Exam General: Cooperative, healthy appearing, comfortable, no acute distress and well developed Orientation: Patient oriented x3 Limitations: Chronic left shoulder problem, positive Job's test Head: Normal to inspection Ears: Hearing grossly normal bilaterally Nose: Normal external nose present Face and sinus: Normal facial exam Eyes: Appearance normal, both eyes and all related structures Neck: Normal visual inspection and Yes full ROM Respiratory: Normal respiratory effort and able to speak in complete sentences. Clear to auscultation bilaterally Cardiovascular: Regular rate and rhythm. Normal S1 and S2 GI: Normal to inspection. Soft to palpation and nontender : testicles without masses/lesions and no hernias appreciated Skin: No rashes or lesions noted Neuro: Patient oriented x3 Extremities: Normal to inspection except for chronic left shoulder problem, positive Job's test Results Plan 1. Anxiety The patient reports anxiety, which is managed with hydroxyzine for panic attacks. He experiences increased anxiety with vaping and plans to quit, using gum to address oral fixation. 2. Chronic Left Shoulder Pain The patient has chronic left shoulder pain, possibly due to a labral tear from a fall two years ago. Physical therapy was unsuccessful, and an MRI is planned to further evaluate the shoulder. Discussion Notes I discussed with the patient the management of his anxiety, emphasizing the importance of quitting vaping to reduce anxiety levels. We also discussed the need for an MRI to further assess his chronic left shoulder pain, given the unsuccessful physical therapy and positive Keshia's test. Patient Instructions - Quit vaping to help manage anxiety. - Use gum to address oral fixation. - Schedule an MRI for the left shoulder. [facility] Medical History Bacterial conjunctivitis of left eye Otitis externa Chronic pain in left shoulder COVID Tension headache Asthma No known health problems Surgical History S/P appendectomy Family History Father Hypertension Diabetes Substance use disorder Mother No problems noted. Paternal Grandfather Diabetes Paternal Grandfather Substance use disorder Maternal Aunt Substance use disorder Maternal Grandmother Substance use disorder Paternal Aunt Substance use disorder Brother FH: heart attack Social History Household Members: Spouse and Family Housing: House Do you presently have visiting nurse or other home services: No Alcohol intake: never Patient Tobacco Use Status: Former Tobacco user e-Cigarette/Vaping Use: Currently Using Second Hand Smoke Exposure: No service: No Current occupational status: employed Cognitive needs: No Hearing needs: No Vision needs: No Questionnaire PHQ-9 Over the last 2 weeks, how often have you been bothered by any of the following problems? 1. Little interest or pleasure in doing things: nearly every day 2. Feeling down, depressed, or hopeless: not at all 3. Trouble falling or staying asleep, or sleeping too much: several days 4. Feeling tired or having little energy: not at all 5. Poor appetite or overeating: not at all 6. Feeling bad about yourself - or that you are a failure or have let yourself or your family down: not at all 7. Trouble concentrating on things, such as reading the newspaper or watching television: not at all 8. Moving or speaking so slowly that other people could have noticed. Or the opposite - being so fidgety or restless that you have been moving around a lot more than usual: not at all 9. Thoughts that you would be better off or of hurting yourself in some way: not at all Total score: 4 Depression Screening Interpretation: Negative Depression Screening Done: Yes 06541 - PHQ-9 Billing: Yes Source: Developed by Drs. August Galindo, Rekha Goodwin, Thomas Sanabria and colleagues, with an educational fady from [employer]. Thrive Questionnaire Date Thrive assessed: 01/03/24 I am a: Patient What is your living situation today?: I have a steady place to live Within the past 12 months, did the food you bought not last and you didn't have the money to get more?: Never true Within the past 12 months, did you worry whether your food would run out before you got money to buy more?: Never true Do you have trouble paying for medicines?: No Do you have trouble getting transportation to medical appointments?: No Do you have trouble paying your heating and electricity bill?: No Do you have trouble taking care of your child, family member or friend?: No Do you have trouble with day-to-day activities such as bathing, preparing meals, shopping, managing finances, etc.?: No Are you currently unemployed and looking for a job?: No Are you interested in more education?: No Please select the resources that you would like help with: None Currently or been in a relationship where the following occur: No concerns reported THRIVE Score: 0 AUDIT C Alcohol Use Questionnaire (AUDIT-C) 1. How often do you have a drink containing alcohol?: Never Total Score: 0 MELIDA-7 AMB Questionnaire MELIDA-7 Date MELIDA - 7 assessed: 01/27/25 Feeling nervous, anxious, or on edge: 0 = Not at all Not being able to stop or control worryin = Not at all Worrying too much about different things: 0 = Not at all Trouble relaxin = More than half the days Being so restless that it is hard to sit still: 2 = More than half the days Becoming easily annoyed or irritable: 0 = Not at all Feeling afraid as if something awful might happen: 0 = Not at all Total MELIDA-7 score (0-4 normal; 5-9 mild; 10-14 moderate; 15-21 severe): 4 Source: Developed by Drs. August Galindo, Rekha Goodwin, Thomas Sanabria and colleagues, with an educational fady from [employer]. MELIDA-7 Assessment Billing MELIDA-7 Assessment Tool: MELIDA-7 Assessment 53887 Physical exam (Primary Care) Vital Signs: Last Vital Signs Pulse 72 01/27/25 08:38 Resp 16 01/27/25 08:38 BP 120/74 01/27/25 08:38 Pulse Ox 97 01/27/25 08:38 BMI result Body Mass Index 27.4 Tobacco/Smoking Status: Tobacco use Status Tobacco use date assessed 01/06/24 11/15/24 14:08 Patient Tobacco Use Status Former Tobacco user 01/03/25 08:57 e-Cigarette/Vaping Use Currently Using 11/15/24 14:08 Depression Screening Interpretation: Negative Thrive Assessment: Date of Thrive Assessment Date Thrive assessed 01/03/24 11/15/24 14:08 Currently or been in a relationship where the following occur: No concerns repor irving Coding Level of Care Code Est Pt Level 3 (01206) Est Pt Prev Care 18-39y(11412) Diagnoses Chronic pain in left shoulder M25.512; G89.29 Encounter for routine adult physical exam with abnormal findings Z00.01 Additional Codes MELIDA-7 Assessment Billing - MELIDA-7 Assessment Tool: MELIDA-7 Assessment 00189 ([id number]) PHQ-9 - 81613 - PHQ-9 Billing: Yes ([id number]) Assessment & Plan Assessment & Plan (1) Chronic pain in left shoulder: Code(s): M25.512 - Pain in left shoulder; G89.29 - Other chronic pain Category: Medical (2) Encounter for routine adult physical exam with abnormal findings: Code(s): Z00.01 - Encounter for general adult medical examination with abnormal findings Category: Medical Plan . Orders: Orders MR shoulder LT wo con Today G89.29 - Other chronic pain, M25.512 - Pain in left shoulder
[2025-01-27 08:38] VITALS: BP 120/74; PULSE 72; RESP 16; O2SAT 97; BMI 27.4
--- OUTSIDE RECORDS SUMMARY | 2025-01-27 08:58 | XMS_ITS | Clinical Summary ---
Author Organization [facility] Address [address] [place] [address] Care Team Providers Care Black Jack Dealer Name Role Phone Unavailable Primary Care Provider [...] of 3 - 19+ 3-dose series) 01/23/2007 HPV Vaccines (1 - 3-dose SCD M series) 01/23/2015 COVID-19 Vaccine (2023-2 5 season) 2024 Pneumococcal Vaccine: Pediat jeff (0-5 Years) and At-Risk Patients (6 to 49 Years) Aged Out No longer eligible b ased on patient's age to complete this topic
--- OUTSIDE RECORDS SUMMARY | 2025-01-27 08:58 | XMS_ITS | Encounter Summary ---
Author Organization [employer] [facility] Address [address] [facility] [address] [place] [address] Phone Care Team Providers Care Recreation Program Coordinator Name Role Phone Stephen Rogers NP Primary Care Provider + Encounter Details Date Type Department Care Team (Late st Contact Info) Description 10/31/2021 Procedure Pass [facility], Ct Scan - [facility] [address] [place] [address] Social History Tobacco Use Types Packs/Day Years Used Date Smoking Tobacco: Never Assessed Sex and Gender Information Value Date Recorded Sex Assigned at Not on file Legal Sex Male 9:08 PM EDT Gender Identity Not on file Sexual Orientation Not on file documented as of this encounter Functional Status * Calculated C-SSRS Risk Score (Lifetime/Recent) Answer Date of Assessment Author No Risk Indicated 10/31/2021 11:32 AM EDT Christina Rodriguez RN * [place] Suicide Severity Rating Scale (Screener/Recent Self-Report) Question Answer Date of Assessment Author 1. Wish to be (Past 1 Month) No 022 11:32 AM MATTHEWT Christina Rodriguez, RN 2. Non-Specific Active Suici juan Thoughts (Past 1 Month) No 10/31/2021 11:32 AM MATTHEWT Christina Rodriguez, RN 6. Suicidal Behavior (Lifetime) No 11:32 AM MATTHEWT Christina Rodriguez, RN documented as of this encounter Plan of Treatment Not on file documented as of this encounter Visit Diagnoses Not on filedocumented in this encounter Care Teams Recreation Program Coordinator Relationship Specialty Start Date End Date Stephen Rogers NP [facility] [place] [address] PCP - General Family Medicine 10/31/21 documented as of this encounter Additional Source Comments The information contained in this document represents components of the legal health record. It is not the complete legal health record.[facility]
--- OUTSIDE RECORDS SUMMARY | 2025-01-27 08:58 | XMS_ITS | Clinical Summary ---
Author Organization [facility] Address [address] [address] Phone Care Team Providers Care Annealing Furnace Tender Name Role Phone Stephen Rogers NP Primary [...] HIV ONE-TIME SCREENING (18-6 5 YEARS) 01/23/2006 INFLUENZA VACCINE (#1) 2024 COVID-19 VACCINE (2023-2 5 season) 2025 SCREENING FOR DIABETES 12/29/2026 12/30/2023 HEPATITIS A [...] topic Medical Devices Not on file Insurance [facility] [place] [address] [address] [employer] [facility] [place] [address] [employer] [facility] [employer] [facility] [address] [employer] [address] [address] [address] [employer] [facility] [employer] [facility] [employer] [facility] [employer] Care Teams Annealing Furnace Tender Relationship Specialty Start Date End Date Stephen Rogers NP [facility] [place] [address] PCP - General Family Medicine 10/31/21 Additional Source Comments The information contained in this document represents components of the legal health record. It is not the complete legal health record.[facility]
== END 2025-01-27 09:09 | disposition home or self-care (01) ==
LOC: HO.HMCC 08:30
PROVIDERS: PCP Nurse Practitioner Family; Visit Provider Nurse Practitioner Family
DX: Z00.01 Encounter for general adult medical examination with abnormal findings (principal); M25.512 Pain in left shoulder; G89.29 Other chronic pain

== ENCOUNTER → 2025-01-27 08:30 | Outpatient (BNVA) | payer OTHER, SELFPAY | PROVIDERS: PCP Nurse Practitioner Family; Visit Provider Nurse Practitioner Family | DX: Z00.01 Encounter for general adult medical examination with abnormal findings (principal); F41.9 Anxiety disorder, unspecified; F17.290 Nicotine dependence, other tobacco product, uncomplicated; M25.512 Pain in left shoulder; G89.29 Other chronic pain | CPT/HCPCS: 96127 ==

== ENCOUNTER 2025-01-28 06:03 | Outpatient (REF) | payer OTHER, SELFPAY ==
--- OUTSIDE RECORDS SUMMARY | 2025-01-28 06:05 | XMS_ITS | Clinical Summary ---
Author Organization [facility] Address [address] [address] [address] Phone Care Team Providers Care Stock Speculator Name Role Phone Stephen Rogers NP Primary [...] topic Medical Devices Not on file Insurance [facility] ACCESS [place] [address] Your Style Unzipped [facility] [place] [address] Your Style Unzipped [facility] Your Style Unzipped [facility] [place] [address] Your Style Unzipped [place] [address] [address] Your Style Unzipped [employer] [facility] Your Style Unzipped [facility] Your Style Unzipped [employer] [facility] Your Style Unzipped [employer] [place] [employer] Care Teams Stock Speculator Relationship Specialty Start Date End Date Stephen Rogers NP [facility] [address] PCP - General Family Medicine 10/31/21 Additional Source Comments The information contained in this document represents components of the legal health record. It is not the complete legal health record.[facility]
--- OUTSIDE RECORDS SUMMARY | 2025-01-28 06:05 | XMS_ITS | Encounter Summary ---
Author Organization [facility] Address [address] [facility] [address] [place] [address] Phone Care Team Providers Care Rail Washer Name Role Phone Stephen Rogers NP Primary Care Provider + Encounter Details Date Type Department Care Team (Late st Contact Info) Description 10/31/2021 Procedure Pass [facility], Ct Scan - [facility] [address] [place] [address] Social History Tobacco Use Types Packs/Day Years [...] 11:32 AM EDT Christina Rodriguez RN * [place] Suicide Severity Rating Scale (Screener/Recent Self-Report) Question [...] on filedocumented in this encounter Care Teams Rail Washer Relationship Specialty Start Date End Date Stephen Rogers NP [facility] [place] [address] PCP - General Family Medicine 10/31/21 documented as of this encounter Additional Source Comments The information contained in this document represents components of the legal health record. It is not the complete legal health record.[facility]
--- OUTSIDE RECORDS SUMMARY | 2025-01-28 06:05 | XMS_ITS | Clinical Summary ---
Author Organization [facility] Address [address] [place] [address] Care Team Providers Care Excellence Specialist Name Role Phone Unavailable Primary Care Provider [...]
[2025-01-28 10:34] LABS: MANUAL DIFF FLAG NO
[2025-01-28 10:46] LABS: Appearance Urine Clear; Glucose Urine UA Negative (Negative); PH 5.5 (5.0-9.0); Specific Gravity - Urine >= 1.030 (1.005-1.025)
[2025-01-28 10:50] LABS: Hematocrit 41.1 % (42.0-52.0); Hemoglobin 13.8 g/dl (14.0-18.0); Imm Gran Abs Auto 0.02 X10*3/uL (0.00-0.03); Imm Gran Pct Auto 0.2 % (0.0-0.4); Lymphocytes Absolute Auto 4.2 X10*3/uL (1.2-4.9); Mean Corpuscular HGB Conc 33.6 g/dl (31.0-36.0); Mean Corpuscular Hemoglobin 27.8 pg (27.0-33.0); Mean Corpuscular Volume 82.9 fL (80.0-98.0); NRBC Abs Auto 0.000 X10*3/uL (0.0-0.012); NRBC Pct Auto 0.0 /100WBC (0.0-0.2); Platelet Count 233 X10*3/uL (160-400); Red Blood Count 4.96 X10*6/uL (4.60-5.80); White Blood Count 9.0 X10*3/uL (4.8-10.8)
[2025-01-28 11:12] LABS: Alanine Aminotransferase 42 U/L (0-40); Albumin Level 4.5 g/dL (3.5-5.0); Alkaline Phosphatase 56 U/L (39-117); Anion Gap 11 (12-20); Aspartate Amino Transferase 38 U/L (5-37); Blood Urea Nitrogen 16 mg/dL (9-16); Calcium 9.1 mg/dL (8.4-10.2); Carbon Dioxide 25 mmol/L (22-29); Chloride 107 mmol/L (96-108); Cholesterol 163 mg/dL (<200); Estimated Glomerular Filt Rate > 60; HDL Cholesterol 42 mg/dL (>40); Potassium 3.6 mmol/L (3.3-5.1); Sodium 139 mmol/L (135-145); Total Protein 7.3 g/dL (6.5-8.0); Triglycerides 159 mg/dL (<150)
== END 2025-01-28 06:04 | disposition home or self-care (01) ==
LOC: HO.HMGCLDS 06:03
PROVIDERS: PCP Nurse Practitioner Family; Visit Provider Nurse Practitioner Family
DX: E78.5 Hyperlipidemia, unspecified (principal); F41.9 Anxiety disorder, unspecified
CPT/HCPCS: 36415; 80053; 80061; 81003; 84443; 85025

== ENCOUNTER 2025-02-02 08:39 | Outpatient (REF) | payer OTHER, SELFPAY ==
--- OUTSIDE RECORDS SUMMARY | 2025-02-02 10:01 | XMS_ITS | Clinical Summary ---
Author Organization [facility] Address [address] [place] [address] Care Team Providers Care Mirror Framer Name Role Phone Unavailable Primary Care Provider [...] series) 01/23/2015 COVID-19 Vaccine (2023-2 5 season) 2025 Pneumococcal Vaccine: Pediat jeff (0-5 Years) and At-Risk Patients (6 to 49 Years) Aged Out No longer eligible b ased on patient's age to complete this topic
--- OUTSIDE RECORDS SUMMARY | 2025-02-02 10:01 | XMS_ITS | Clinical Summary ---
Author Organization [facility] Address [address] [address] Phone Care Team Providers Care Site Medical Director Name Role Phone Stephen Rogers NP Primary [...] topic Medical Devices Not on file Insurance [facility] [place] [address] [place] [address] [facility] [place] [address] [place] [address] [employer] [facility] [employer]rue [facility] [place] [address] [place] [address] [place] [address] [place] [address] [employer] tritrue [facility] tritrue [employer] [facility] tr[employer]rue [employer] Care Teams Site Medical Director Relationship Specialty Start Date End Date Stephen Rogers NP [facility] [place] [address] PCP - General Family Medicine 10/31/21 Additional Source Comments The information contained in this document represents components of the legal health record. It is not the complete legal health record.[facility]
--- OUTSIDE RECORDS SUMMARY | 2025-02-02 10:01 | XMS_ITS | Encounter Summary ---
Author Organization [employer] [facility] Address [address] [facility] [address] [place] [phone] Phone Care Team Providers Care Data Sciences Director Name Role Phone Stephen Rogers NP Primary Care Provider + Encounter Details Date Type Department Care Team (Late st Contact Info) Description 10/31/2021 Procedure Pass [facility], Ct Scan - [facility] [address] [place] [address] Social History Tobacco Use Types Packs/Day Years [...] 11:32 AM EDT Christina Rodriguez RN * [place] Suicide Severity Rating Scale (Screener/Recent Self-Report) Question [...] on filedocumented in this encounter Care Teams Data Sciences Director Relationship Specialty Start Date End Date Stephen Rogers NP [facility] [place] [address] PCP - General Family Medicine 10/31/21 documented as of this encounter Additional Source Comments The information contained in this document represents components of the legal health record. It is not the complete legal health record.[facility]
[2025-02-02 10:47] LABS: MANUAL DIFF FLAG NO
[2025-02-02 10:57] LABS: Hematocrit 43.7 % (42.0-52.0); Hemoglobin 14.8 g/dl (14.0-18.0); Imm Gran Abs Auto 0.02 X10*3/uL (0.00-0.03); Imm Gran Pct Auto 0.2 % (0.0-0.4); Lymphocytes Absolute Auto 3.2 X10*3/uL (1.2-4.9); Mean Corpuscular HGB Conc 33.9 g/dl (31.0-36.0); Mean Corpuscular Hemoglobin 27.8 pg (27.0-33.0); Mean Corpuscular Volume 82.1 fL (80.0-98.0); NRBC Abs Auto 0.000 X10*3/uL (0.0-0.012); NRBC Pct Auto 0.0 /100WBC (0.0-0.2); Platelet Count 231 X10*3/uL (160-400); Red Blood Count 5.32 X10*6/uL (4.60-5.80); Reticulocytes Absolute 0.090 X10*6/uL (0.026-0.095); White Blood Count 8.0 X10*3/uL (4.8-10.8)
[2025-02-02 11:57] LABS: Iron 115 mcg/dL (45-160); Percent Iron Saturation 35 % (15-50); Total Iron Binding Capacity 332 mcg/dL (228-428); Unsaturated Iron Binding 217 ug/dL
[2025-02-02 12:12] LABS: HBS Num1 25.59 mIU/mL (0-7.99); HBc Num1 0.18 S/CO (0.00-0.79); HBsAGNum1 0.48 S/CO (0.00-0.99); Hepatitis B Surface Antigen Negative (Negative); ~HepC Num1 0.10 S/CO (0.00-0.79); ~Hepatitis B Surface Antibody REACTIVE (Nonreactive); ~Hepatitis C Antibody Nonreactive (Nonreactive)
[2025-02-02 12:13] LABS: Ferritin 69 ng/mL (20-250)
[2025-02-02 12:22] LABS: Folate 12.6 ng/mL (> or = 4.0); Vitamin B12 644 pg/mL (200-900)
[2025-02-02 12:40] LABS: Hepatitis A Antibody IgM 0.59 Index (0-0.79); ~Hepatitis A Antibody IgM Nonreactive (Nonreactive)
== END 2025-02-02 08:40 | disposition home or self-care (01) ==
LOC: HO.HMGCLDS 08:39
PROVIDERS: PCP Nurse Practitioner Family; Visit Provider Nurse Practitioner Family
DX: Z11.59 Encounter for screening for other viral diseases (principal); D64.9 Anemia, unspecified; R74.8 Abnormal levels of other serum enzymes
CPT/HCPCS: 36415; 82607; 82728; 82746; 83540; 83615; 85025; 85045; 86704; 86706; 86709; 86803; 87340

== ENCOUNTER 2025-02-21 08:02 | Outpatient (AMB) | payer OTHER, SELFPAY ==
--- OUTSIDE RECORDS SUMMARY | 2025-02-21 08:06 | XMS_ITS | Clinical Summary ---
Author Organization [facility] Address [address] [place] [address] Care Team Providers Care Program Counselor Name Role Phone Unavailable Primary Care Provider [...]
--- NOTE | 2025-02-21 08:12 | AM.OFFWIN_ITS ---
Intake Vital Signs 02/21/25 08:15 Height 5 ft 1 in BP 122/76 Blood Pressure Location Lt brachial Position Sitting Pulse 76 Pulse Source Pulse Oximeter Pulse Oximetry (%) 98 Intake Visit Reasons: ep lump near left pelvic area for a week painful Patient Tobacco Use Status: Former Tobacco user Allergies sumatriptan Allergy (Severe, Verified 02/21/25 08:16) Tachycardia, facial numbness atorvastatin Adverse Reaction (Mild, Verified 02/21/25 08:16) pain pollen Allergy (Unknown, Uncoded 08/11/24 14:51) rASH, sob tuna Allergy (Unknown, Uncoded 08/11/24 14:51) anaphylaxis Do you need a note to return to daycare/school/sports/work: No HPI HPI Comments History of Present Illness Details History of Present Illness - The patient is a 35-year-old male pres enting with left groin pain. - The pain began two days ago, following a week and a half of discomfort. - He states that the pain got worse over the past few days and especially when he was playing soccer with his son. - He has a raised tender area in the lef t inguinal region that hurts to touch. - The pain is localized to the left ingu inal area and does not radiate to his testicles, abd, or back. - The patient has taken Tylenol once for relief. - Medical history includes appendectomy and a family history of stomach issues. - Family history includes a brother with Non-Hodgkin's Lymphoma, initially presenting with leg pain. - He denies fever, chills, CP, SOB, dysu saran, hematuria, CP, or SOB. - He denies trauma. - He denies rashes, lesions, testicular pain, penile pain or discharge. - He denies n/v/d, or abd pain. Physical Exam General: Cooperative, healthy appearing, comfortable, no acute distress and well developed Orientation: Patient oriented x3 Limitations: No limitations Respiratory: Normal respiratory effort and able to speak in complete sentences. Clear to auscultation bilaterally Cardiovascular: Regular rate and rhythm. Normal S1 and S2 GI: Hypoactive BS noted. Normal to inspection. Soft to palpation and nontender in all 4 quadrants, non-distended. TTP in the left vertical inguinal region with a small tender mass noted. No erythema noted. No warmth noted. Skin: No rashes or lesions noted Neuro: Patient oriented x3 Extremities: Normal to inspection. FROM of the left hip. FROM of the left knee and ankle. Ambulates with a steady gait Patient was informed and verbally consented to the use of an ambient scribe for clinic note documentation during this visit. [facility] Medical History Bacterial conjunctivitis of left eye Otitis externa Chronic pain in left shoulder COVID Tension headache Asthma No known health problems Surgical History S/P appendectomy Family History Father Hypertension Diabetes Substance use disorder Mother No problems noted. Paternal Grandfather Diabetes Paternal Grandfather Substance use disorder Maternal Aunt Substance use disorder Maternal Grandmother Substance use disorder Paternal Aunt Substance use disorder Brother FH: heart attack Social History Household Members: Spouse and Family Housing: House Do you presently have visiting nurse or other home services: No Alcohol intake: never Patient Tobacco Use Status: Former Tobacco user e-Cigarette/Vaping Use: Currently Using Second Hand Smoke Exposure: No service: No Current occupational status: employed Cognitive needs: No Hearing needs: No Vision needs: No Review of Systems Const All systems reviewed & are unremarkable except as noted in HPI and below Physical Exam Vital Signs: Last Vital Signs Pulse 76 02/21/25 08:15 BP 122/76 02/21/25 08:15 Pulse Ox 98 02/21/25 08:15 Assessment & Plan Assessment & Plan (1) Left inguinal pain: Code(s): R10.32 - Left lower quadrant pain Plan Most likely hernia vs lymphadenopathy vs strain plan - An ultrasound has been ordered to further evaluate the cause of the pain. - The patient is advised to visit the emergency room if the pain worsens before the ultrasound is completed.\ - activities as tolerated - tylenol or motrin as needed - follow up with PCP Orders: Orders US pelvic limited Today R10.32 - Left lower quadrant pain Coding Level of Care Code Est Pt Level 4 (62495) Diagnoses Left inguinal pain R10.32
[2025-02-21 08:15] VITALS: BP 122/76; PULSE 76; O2SAT 98
== END 2025-02-21 09:17 | disposition home or self-care (01) ==
PROVIDERS: PCP Nurse Practitioner Family; Visit Provider Physician Assistant Medical
DX: R10.32 Left lower quadrant pain (principal)

== ENCOUNTER 2025-03-23 15:43 | Outpatient (REF) | payer OTHER, SELFPAY ==
--- NOTE | ~2025-03-23 | MR_ITS ---
EXAMINATION: MR ABDOMEN WITHOUT AND WITH CONTRAST CLINICAL INFORMATION: K 76.89. Other specified disease of liver. COMPARISON: Correlated to CT abdomen and pelvis dated September 16, 2020. TECHNIQUE: MR abdomen was performed without and with use of 6.5 mL intravenous Gadavist) gadolinium contrast. Postcontrast images are performed in multiphase dynamic sequences. Imaging was performed in 3 planes. No reported immediate complications. FINDINGS: LUNG BASES: No signal abnormality or enhancing mass. LIVER, GALLBLADDER, AND BILIARY TREE: Liver measures 15 cm. There is a lobulated, well-defined, 10 mm hypointense T1 hyperintense T2, nonrestricted diffusion fairly arterial phase and persistent portal venous phase and delayed phase enhancing lesion centered in the periphery of the inferior right hepatic lobe. The main portal veins, hepatic veins and intrahepatic portion of the IVC are patent. Gallbladder appears contracted. No intrahepatic or extrahepatic biliary ductal dilatation. Common bile duct measures 3 mm. No intraluminal signal abnormality. PANCREAS: No enhancing mass. No main pancreatic ductal dilatation. No peripancreatic fluid collection. SPLEEN: 9 cm. No solid or cystic lesion. 1.5 cm accessory spleen.. ADRENAL GLANDS: No nodular lesion. KIDNEYS AND URETERS: Normal enhancement pattern of the renal regular. No hydronephrosis. No enhancing renal mass. No dilatation of the ureters. GASTROINTESTINAL TRACT: Abundant stool. No intestinal obstruction pattern. No ascites. ABDOMINAL WALL: No gross umbilical hernia. LYMPH NODES: No retroperitoneal or mesenteric lymphadenopathy. VASCULAR: No aneurysm or dissection, abdominal aorta. OSSEOUS STRUCTURES: No acute fracture or listhesis. No bone marrow signal abnormality. Conus medullaris ends at superior endplate of L2 with normal signal. MR/MR abdomen wo/w con IMPRESSION: 10 mm enhancing lesion, right hepatic lobe. Consider a flash hemangioma. Recommend follow-up for stability. Electronically signed by: Jim Zapata MD 03/23/2025 08:26 PM EDT
--- NOTE | ~2025-03-23 | MR_ITS ---
EXAMINATION: MRI Shoulder without contrast, left shoulder TECHNIQUE: Multiplanar multisequence MR imaging through an upper extremity joint without contrast. INDICATION: Left shoulder pain, fell physical therapy PRIOR: X-ray December 20, 2024 FINDINGS: Rotator Cuff: There is minimal increased signal within supraspinatus and infraspinatus tendons. There is no sign of a tendon tear. Subscapularis tendon is intact. Labrum: Intact and not degenerated Long biceps tendon: The long biceps tendon is intact and not displaced from the groove. Acromioclavicular joint: AC joint is intact and not degenerated. Acromial morphology is curved, type II. There is physiologic fluid signal in the subacromial subdeltoid bursa. There is no subacromial spur. Axillary pouch: The axillary pouch is intact. Articular cartilage: There are no articular cartilage defects. Bones/Marrow: Degenerative cystic cluster is present in the posterior anatomic neck of humerus. Soft tissues: There is no muscle edema, atrophy, or fatty streaking. MR/MR shoulder LT wo con IMPRESSION: Essentially unremarkable MRI of the left shoulder. Very mild changes of tendinopathy are noted in supraspinatus and infraspinatus tendons. There is a nonspecific cluster of degenerative cysts in the posterior anatomic neck of humerus. This can be seen with internal impingement, but no other abnormalities are identified. Electronically signed by: Raz Emmanuel MD 03/23/2025 05:05 PM EDT
--- OUTSIDE RECORDS SUMMARY | 2025-03-23 19:58 | XMS_ITS | Clinical Summary ---
Author Organization [facility] Address [address] [place] [address] Care Team Providers Care Horseradish Maker Name Role Phone Unavailable Primary Care Provider [...] series) 01/23/2007 COVID-19 Vaccine (2023-2 5 season) 2025 HPV Vaccines (No Doses Required) Completed Pneumococcal Vaccine: Pediat jeff (0-5 Years) and At-Risk Patients (6 to 49 Years) Aged Out No longer eligible b ased on patient's age to complete this topic
--- OUTSIDE RECORDS SUMMARY | 2025-03-23 19:58 | XMS_ITS | Encounter Summary ---
Author Organization [employer] [facility] Address [address] [facility] [address] [place] [address] Phone Care Team Providers Care Integrated Circuit Design Engineer Name Role Phone Stephen Rogers NP Primary Care Provider + Encounter Details Date Type Department Care Team (Late st Contact Info) Description 10/31/2021 Procedure Pass [facility], Ct Scan - [facility] [address] [place] [address] Social History Tobacco Use Types Packs/Day Years [...] 11:32 AM EDT Christina Rodriguez RN * [place] Suicide Severity Rating Scale (Screener/Recent Self-Report) Question [...] on filedocumented in this encounter Care Teams Integrated Circuit Design Engineer Relationship Specialty Start Date End Date Stephen Rogers NP [facility] [place] [address] PCP - General Family Medicine 10/31/21 documented as of this encounter Additional Source Comments The information contained in this document represents components of the legal health record. It is not the complete legal health record.[facility]
--- OUTSIDE RECORDS SUMMARY | 2025-03-23 19:58 | XMS_ITS | Clinical Summary ---
Author Organization [employer] [facility] Address [address] [employer] [address] [address] Phone Care Team Providers Care Strap Cutter Name Role Phone Stephen Rogers NP Primary [...] 01/23/2006 INFLUENZA VACCINE (#1) 2024 COVID-19 VACCINE ( - 2024-2 6 season) 2025 SCREENING FOR DIABETES 12/29/2026 12/30/2023 [...] topic Medical Devices Not on file Insurance [facility] ACCESS [place] [address] [employer] [facility] [address] [employer] [facility] [employer] [facility] [address] [employer] [place] [address] [employer] [employer] [facility] [employer] [facility] [employer] Care Teams Strap Cutter Relationship Specialty Start Date End Date Stephen Rogers NP [facility] [place] [address] PCP - General Family Medicine 10/31/21 Additional Source Comments The information contained in this document represents components of the legal health record. It is not the complete legal health record.[facility]
== END 2025-03-23 15:44 | disposition home or self-care (01) ==
LOC: HO.MRI 15:43
PROVIDERS: PCP Nurse Practitioner Family; Visit Provider Nurse Practitioner Family
DX: M25.512 Pain in left shoulder (principal); G89.29 Other chronic pain; K76.89 Other specified diseases of liver
CPT/HCPCS: 73221; 74183; A9585

== ENCOUNTER → 2025-03-23 15:53 | Outpatient (BNV) | payer OTHER, SELFPAY | PROVIDERS: PCP Nurse Practitioner Family; Visit Provider Radiology Diagnostic Radiology | DX: K76.89 Other specified diseases of liver (principal); M67.814 Other specified disorders of tendon, left shoulder | CPT/HCPCS: 73221; 74183 ==

== ENCOUNTER 2025-04-12 10:16 | Outpatient (REF) | payer OTHER, SELFPAY ==
--- NOTE | ~2025-04-12 | US_ITS ---
CLINICAL HISTORY: D64.9 - Anemia, unspecified US abdomen complete Comparison: MR/SR - MR ABDOMEN WITHOUT THEN WITH IV CONTRAST - 03/23/25 16:10 EDT Findings: The visualized pancreas head is normal. The visualized aorta and inferior vena cava are normal caliber. The liver is normal in size, right lobe length is 14.2 cm. Normal in echogenicity. Calcified granuloma right hepatic lobe. The right hepatic hemangioma seen on recent MRI exam is not visualized, likely due to technical differences. No intrahepatic bile duct dilatation. The common duct is 2 mm in diameter. The gallbladder is normal. Negative sonographic Faith sign. The main portal vein is patent with antegrade flow. The right kidney is normal, 10.2 cm in length. The left kidney is normal, 10.7 cm in length. The spleen is normal, 12 cm in length. No free fluid in the abdomen. Impression: No sonographic abnormality. This document has been electronically signed by: Suzanne Cuellar MD on 04/12/2025 16:37:17
== END 2025-04-12 10:17 | disposition home or self-care (01) ==
LOC: HO.HMGCX 10:16
PROVIDERS: PCP Nurse Practitioner Family; Visit Provider Nurse Practitioner Family
DX: R74.8 Abnormal levels of other serum enzymes (principal); D64.9 Anemia, unspecified
CPT/HCPCS: 76700

== ENCOUNTER → 2025-04-12 10:35 | Outpatient (BNV) | payer OTHER, SELFPAY | PROVIDERS: PCP Nurse Practitioner Family; Visit Provider Radiology Diagnostic Radiology | DX: D64.9 Anemia, unspecified (principal) | CPT/HCPCS: 76700 ==

== ENCOUNTER 2025-04-19 06:29 | Outpatient (REF) | payer OTHER, SELFPAY ==
[2025-04-19 10:21] LABS: MANUAL DIFF FLAG NO
[2025-04-19 10:22] LABS: Appearance Urine Clear; Glucose Urine UA Negative (Negative); PH 7.0 (5.0-9.0); Specific Gravity - Urine 1.020 (1.005-1.025)
[2025-04-19 10:27] LABS: Hematocrit 44.5 % (42.0-52.0); Hemoglobin 15.1 g/dl (14.0-18.0); Imm Gran Abs Auto 0.02 X10*3/uL (0.00-0.03); Imm Gran Pct Auto 0.3 % (0.0-0.4); Lymphocytes Absolute Auto 3.5 X10*3/uL (1.2-4.9); Mean Corpuscular HGB Conc 33.9 g/dl (31.0-36.0); Mean Corpuscular Hemoglobin 28.1 pg (27.0-33.0); Mean Corpuscular Volume 82.7 fL (80.0-98.0); NRBC Abs Auto 0.000 X10*3/uL (0.0-0.012); NRBC Pct Auto 0.0 /100WBC (0.0-0.2); Platelet Count 213 X10*3/uL (160-400); Red Blood Count 5.38 X10*6/uL (4.60-5.80); White Blood Count 7.5 X10*3/uL (4.8-10.8)
[2025-04-19 10:59] LABS: Alanine Aminotransferase 31 U/L (0-40); Albumin Level 4.7 g/dL (3.5-5.0); Alkaline Phosphatase 54 U/L (39-117); Anion Gap 11 (12-20); Aspartate Amino Transferase 32 U/L (5-37); Blood Urea Nitrogen 15 mg/dL (9-16); Calcium 9.4 mg/dL (8.4-10.2); Carbon Dioxide 28 mmol/L (22-29); Chloride 105 mmol/L (96-108); Cholesterol 248 mg/dL (<200); Estimated Glomerular Filt Rate > 60; HDL Cholesterol 48 mg/dL (>40); Potassium 4.2 mmol/L (3.3-5.1); Sodium 140 mmol/L (135-145); Total Protein 7.7 g/dL (6.5-8.0); Triglycerides 213 mg/dL (<150)
== END 2025-04-19 06:30 | disposition home or self-care (01) ==
LOC: HO.HMGCLDS 06:29
PROVIDERS: PCP Nurse Practitioner Family; Visit Provider Nurse Practitioner Family
DX: E86.0 Dehydration (principal); R53.1 Weakness; R42 Dizziness and giddiness; E87.6 Hypokalemia; E16.2 Hypoglycemia, unspecified
CPT/HCPCS: 36415; 80053; 80061; 81003; 84443; 85025

== ENCOUNTER 2025-04-19 06:29 | Outpatient (AMB) | payer OTHER, SELFPAY ==
--- OUTSIDE RECORDS SUMMARY | 2025-04-15 22:00 | XMS_ITS | Continuity of Care Document ---
Author Organization [facility] Address [address] [place] [id number]- Care Team Providers Care Toy Painter Name Role Phone Sue SHANKS, Stephen Nichols Primary [id number] Date(s): 04/15/25 - 04/15/[address] [address]- Discharge Disposition: A-D/C Home Attending Physician: Tana Franks DO Admitting Physician: Tana Franks DO Referring Physician: Not on Staff, Referring MD Encounter Type: Disch ES Allergies, Adverse Reactions, Alerts Substance Criticality Severity Reaction Reaction Severity Status SUMAtriptan Active Medications amitriptyline 25 mg oral tablet 25 mg, 1, tablet, By Mouth, 3 times a day, # 270 tablet, Refills 0, Maintenance, 10/02/22 7:05:00 AMEDT, Partial fill upon patient request if the prescription is for a schedule II opioid drug. Start Date: 10/02/22 Status: Ordered Medication Dispense Status: Completed Quantity: 270.0 Unit: tablet Total Allowed Fills: 1 Fills Dispensed: 0 Crutches See Instructions, # 1 pair, Maintenance, Dx:, 09/04/14 5:24:04 AM EDT, Compound Start Date: 09/04/14 Status: Ordered Medication Dispense Status: Completed Quantity: 1.0 Unit: pair Total Allowed Fills: 1 Fills Dispensed: 0 ibuprofen 600 mg oral tablet 1 tablet = 600 mg, By Mouth, 3 times a day, # 15 tablet, 0 Refills, Maintenance, 09/04/14 5:24:14 AMEDT Start Date: 09/04/14 Stop Date: 09/09/14 Status: Ordered Medication Dispense Status: Completed Quantity: 15.0 Unit: tablet Total Allowed Fills: 1 Fills Dispensed: 0 K-Dur 10 mEq oral tablet, extended release 4 tablet = 40 mEq, By Mouth, Daily, # 12 tablet, 0 Refills, Maintenance, 05/22/12 1:42:50 AM EST, ER Tablet Start Date: 05/22/12 Stop Date: 05/25/12 Status: Ordered Medication Dispense Status: Completed Quantity: 12.0 Unit: tablet Total Allowed Fills: 1 Fills Dispensed: 0 ondansetron 4 mg oral tablet, disintegrating 1 tablet = 4 mg, By Mouth, Every 6 hours, PRN as needed for nausea/vomiting, # 12 tablet, 0 Refills, Maintenance, 03/16/24 10:42:00 PM EDT, DIS Tablet, [facility]/pharmacy #[id number], Partial fill upon patient request if the prescription is for a schedule II opioid drug., 158, cm, 03/16/24 21:27:00 EDT, Height, 66.5, kg, 03/16/24 21:27:00 EDT, Dry Weight Start Date: 03/16/24 Stop Date: 03/19/24 Status: Ordered Medication Dispense Status: Completed Quantity: 12.0 Unit: tablet Total Allowed Fills: 1 Fills Dispensed: 0 Protonix 40 mg oral delayed release tablet 1 tablet = 40 mg, By Mouth, Daily, # 30 tablet, 0 Refills, Maintenance, 02/26/25 8:30:00 PM EDT, EC Tablet, 155, cm, 02/26/25 17:09:00 EDT, Height, 66.5, kg, 02/26/25 17:09:00 EDT, Dry Weight Start Date: 02/26/25 Status: Ordered Medication Dispense Status: Completed Quantity: 30.0 Unit: tablet Total Allowed Fills: 1 Fills Dispensed: 0 Mental Status Mental Status Assessment Assessment Assessment Component Result Effecti ve Date Agustín coma score total 15 Mental Status Assessment Assessment Assessment Component Result Effecti ve Date [place] coma score total 15 Body height 155 04/15/25 Scale weight (physical object) Standing s ara 04/15/25 Body weight 64.5 04/15/25 Mental Status Assessment Assessment Assessment Component Result Effecti ve Date [place] coma score total 15 Problem List Condition Confirmation Course Effective Dates Status Health St atus Informant Nightmare disorder Confirmed Active Post traumatic stress disorder (PTSD) Confirmed Active Major depression, recurrent, chronic 1 Confirmed Active 1moderate with anxious distress Results Radiology Reports * Exam Date Time Procedure Performing Provider Status 04/15/25 8:08 PM Chest 2 Views Frontal and Lat Auth (Verified) Notes: (Chest 2 Views Frontal and Lat) Reason For Exam: Chest Pain;Other: RESULT: Chest 2 Views Frontal and Lat Chest 2 Views Frontal and Lat Hx of Present Illness: palpitation chest tightness; Reason: Other:; Chest Pain; Clinical Question(s): Other: COMPARISON: 02/26/2025 FINDINGS: LINES AND TUBES: None. LUNGS AND PLEURA: Clear lungs. Normal pulmonary vascularity. No evidence of pleural effusion. No pneumothorax. HEART, MEDIASTINUM AND TAMIKO: Heart is normal in size. Normal mediastinal and hilar contour. BONES AND SOFT TISSUES: No acute abnormality. IMPRESSION: No acute abnormality. WSN: [id number] Ordering Physician: Darrion Terrell Dictated By: Mc Castro MD Dictated Date/Time: 04/15/25 9:45 pm Reviewed By: Mc Castro MD Signed By: Mc Castro MD Signed Date/Time: 04/15/25 9:45 pm Transcribed By: JENNA Transcribed Date/Time: 04/15/25 9:45 pm Vital Signs Most recent to oldest [Reference Range]: 1 2 3 Height 155 cm (04/15/25 6:29 PM) 155 cm (04/15/25 6:27 PM) 155 cm (04/15/25 6:26 PM) Weight 64.5 kg (04/15/25 6:29 PM) 64.5 kg (04/15/25 6:27 PM) 64.5 kg (04/15/25 6:26 PM) Oxygen Saturation [94-100 %] 100 % (04/15/25 9:45 PM) 100 % (04/15/25 6:26 PM) Pulse Rate [55-90 bpm] 93 bpm *H* (04/15/25 9:45 PM) 108 bpm *H* (04/15/25 6:26 PM) Body Mass Index [18.5-24.99 kg/m2] 26.85 kg/m2 *H* (11/21/25 6:27 PM) 26.85 kg/m2 *H* (04/15/25 6:26 PM) Blood Pressure [90-138/55-84 mm Hg] 136/96mm Hg (04/15/25 9:45 PM) 150/102mm Hg *H* (04/15/25 6:26 PM) Respiratory Rate [16-30 br/min] 18 br/min (04/15/25 9:45 PM) 18 br/min (04/15/25 6:26 PM) Temperature [96.8-100.4 DegF] 98.2 DegF (04/15/25 6:26 PM) Mode of Delivery (Oxygen) Room air (04/15/25 9:45 PM) Room air (04/15/25 6:26 PM) Blood pressure sites Arm, left (04/15/25 9:45 PM) Arm, left (04/15/25 6:26 PM) Temperature Route Oral (04/15/25 6:26 PM) Weight Obtained Via Standing scale (04/15/25 6:29 PM) Patient/family stated (04/15/25 6:26 PM) Social History Social History Type Response Smoking Status Never (less than 100 in lifetime) entered on: 03/16/24 Sex Sex Representation Male (finding) Status Not Patient Care team information Care Team Personnel Name: Stephen Rogers NP Position: Reference Physician Member Role: PCP Address: [address] [place] [address] Telecom: Care Team Related Persons Name: NADIA MATHIS Name: PATIENT, STATES NOONE Name: LIGIA MC Insurance Providers Guarantor name: ANGELICA MC Health Plan Information #: 1 Payer: ALISON PPO OR CARELNK Payer Identifier: JOE Member Number: [id number] Group Number: [id number] Subscriber Identifier: [id number] Relationship to Subscriber: self Coverage Type: Commercial Managed Care - PPO Coverage Verification Date: NA Telecom: NA Address:
--- OUTSIDE RECORDS SUMMARY | 2025-04-19 06:35 | XMS_ITS | Encounter Summary ---
Author Organization [facility] Address [address] [facility] [address] [place] [phone] Phone Care Team Providers Care Project Archivist Name Role Phone Stephen Rogers NP Primary Care Provider + Encounter Details Date Type Department Care Team (Late st Contact Info) Description 10/31/2021 Procedure [facility], Ct Scan - [facility] [address] [place] [address] Social History Tobacco Use Types Packs/Day Years [...] 11:32 AM EDT Christina Rodriguez RN * [place] Suicide Severity Rating Scale (Screener/Recent Self-Report) Question [...] on filedocumented in this encounter Care Teams Project Archivist Relationship Specialty Start Date End Date Stephen Rogers NP [facility] [place] [address] PCP - General Family Medicine 10/31/21 documented as of this encounter Additional Source Comments The information contained in this document represents components of the legal health record. It is not the complete legal health record.[facility]
--- OUTSIDE RECORDS SUMMARY | 2025-04-19 06:35 | XMS_ITS | Clinical Summary ---
Author Organization [facility] Address [address] [place] [address] Care Team Providers Care Commissioning Engineer Name Role Phone Unavailable Primary Care Provider [...]
--- OUTSIDE RECORDS SUMMARY | 2025-04-19 06:35 | XMS_ITS | Clinical Summary ---
Author Organization [address] [facility] Address [address] [address] Phone Care Team Providers Care Home Office Claims Examiner Name Role Phone Stephen Rogers NP Primary [...] topic Medical Devices Not on file Insurance [facility] [place] [place] [address] [place] [address] [employer]one [facility] [place] [address] [place] [address] [employer] [facility] [place] [address] [place] [address] [place] [address] [employer] Clone [employer] [facility] [employer]one [employer] Care Teams Home Office Claims Examiner Relationship Specialty Start Date End Date Stephen Rogers NP [facility] [place] [address] PCP - General Family Medicine 10/31/21 Additional Source Comments The information contained in this document represents components of the legal health record. It is not the complete legal health record.[facility]
--- OUTSIDE RECORDS SUMMARY | 2025-04-19 06:35 | XMS_ITS | Clinical Summary ---
Author Organization [facility] Address [address] [place] [address] Phone Care Team Providers Care Tinsel Machine Operator Name Role Phone Stephen Rogers NP Primary Care Provider Allergies Active Allergy Reactions Criticality Noted Date Comments Sumatriptan 04/13/2025 Medications No known medications Encounters Date Type Department Care Team Description 04/13/2025 3:20 PM EST - 04/13/2025 6:[address] [facility] [address] [place] [address] Jd Gomez MD Chest pain, unspecified type (Primary Dx) Discharge Disposition: Home or Self Care from Last 3 Months Surgical History Surgery Date Site/Laterality Comments APPENDECTOMY PROCEDURE: HISTORICAL APPENDECTOMY Medical History Medical History Date Comments Asthma DX:Asthma Covid DX:COVID Tension headache DX:Tension head ache Family History Medical History Relation Name Comments Diabetes Father Hypertension Father Other: Substance Use Disorder Father Coronary artery disease Maternal Grandmother aicd Other: Substance Use Disorder Maternal Grandmother No Known Problems Mother Other: heart problem Other Cousin Diabetes Paternal Grandfather Other: Substance Use Disorder Paternal Grandfather Relation Name Status Comments Father Maternal Grandmother Mother Other Cousin Alive Paternal Grandfather Social History Tobacco Use Types Packs/Day Years Used Date Smoking Tobacco: Former Smokeless Tobacco: Never Alcohol Use Standard Drinks/Week Comments Not Currently 0 (1 standard drink = 0.6 oz pur e alcohol) Sex and Gender Information Value Date Recorded Sex Assigned at Not on file Legal Sex Male 8:57 PM EST Gender Identity Not on file Sexual Orientation Not on file Obstetrics History Last Filed Vital Signs Vital Sign Reading Time Taken Comments Blood Pressure 114/72 04/13/2025 6:28 PM EST Pulse 64 04/13/2025 6:28 PM EST Temperature 36.5 C (97.7 F) 04/13/2025 12:26 PM EST Respiratory Rate 18 04/13/2025 6:28 PM EST Oxygen Saturation 100% 04/13/2025 6:28 PM EST Inhaled Oxygen Concentration - - Weight 64.4 kg (142 lb) 04/13/2025 12:26 PM EST Height 154.9 cm (5' 1 ) 04/13/2025 12:26 PM EST Body Mass Index 26.83 04/13/2025 12:26 PM EST Plan of Treatment Health Maintenance Due Date Last Done Comments Hepatitis A Vaccines (1 of 2 - Risk 2-dose series) 01/23/2007 Hepatitis B Vaccines (1 of 3 - 19+ 3-dose series) 01/23/2007 HPV Vaccines (1 - 3-dose SCD M series) 01/23/2015 Cholesterol Screening (Lipid Panel) 06/20/2023 HIV Screening 06/20/2023 Hepatitis C Screening 06/20/2023 Social Influencers of Health Screening 06/20/2023 Depression Screening 05/26/2024 COVID-19 Vaccine (1 - 2024-2 6 season) 2025 Influenza Vaccine (#1) 2025 DTaP,Tdap,and Td Vaccines (2 - Td or Tdap) 10/07/2033 10/08/2023 RSV Immunization Adult Patie nts (1 - 1-dose 75+ series) 01/23/2063 HIB Vaccines Aged Out No longer eligi ble based on patient's age to complete this topic IPV Vaccines Aged Out No longer eligi ble based on patient's age to complete this topic MMR Vaccines Aged Out No longer eligi ble based on patient's age to complete this topic Meningococcal ACWY Vaccine Aged Out N o longer eligible based on patient's age to complete this topic Meningococcal B Vaccine Aged Out No l onger eligible based on patient's age to complete this topic Pneumococcal Vaccine: Pediat rics (0 to 5 Years) and At-Risk Patients (6 to 49 Years) Aged Out No longer eligi ble based on patient's age to complete this topic RSV Immunization Patients Un brando 20 months Aged Out No longer eligible b ased on patient's age to complete this topic Varicella Vaccines Aged Out No longer eligible based on patient's age to complete this topic Procedures Procedure Name Priority Date/Time Associated Diagnosis Comments ECG ANNOTATED 04/14/2025 XR CHEST 2 VIEWS STAT 04/13/2025 6:15 PM EST TROPONIN I HIGH SENSITIVITY Timed 04/13/2025 4:08 PM EST CBC WITH AUTO DIFFERENTIAL STAT 04/13/2025 12:27 PM EST B-TYPE NATRIURETIC PEPTIDE STAT 04/13/2025 12:27 PM EST MAGNESIUM STAT 04/13/2025 12:27 PM EST COMPREHENSIVE METABOLIC PANEL STAT 04/13/2025 12:27 PM EST CBC AND DIFFERENTIAL STAT 04/13/2025 12:27 PM EST TROPONIN I HIGH SENSITIVITY Timed 04/13/2025 12:27 PM EST ECG 12-LEAD STAT 04/13/2025 12:20 PM EST from Last 3 Months Results * ECG-Annotated (04/14/2025) us Provider Onbase MD ECG ORDERABLES Final Result * XR Chest 2 Views (04/13/2025 6:15 PM EST) Anatomical Region Laterality Modality Body Radiographic Radha ging 04/14/2025 7:59 AM EST Impressions 04/14/2025 8:09 AM EST FINDINGS/IMPRESSION: Lungs are clear. No pleural effusion or pneumothorax. Cardiac silhouette and bones are normal. -------- FINAL REPORT -------- Dictated By: TANISHA ENNIS Dictated Date: 04/14/2025 07:59 ET Assigned Physician: TANISHA ENNIS Reviewed and Electronically Signed By: TANISHA ENNIS Signed Date: 04/14/2025 08:09 ET Workstation ID: [id number] Transcribed By: Self Edit Transcribed Date: 04/14/2025 07:59 ET Narrative 04/14/2025 8:09 AM EST XR CHEST 2 VIEWS INDICATION: Chest pain TECHNIQUE: XR CHEST 2 VIEWS COMPARISON: No priors available. Procedure Note Tanisha Ennis MD - 04/14/2025 XR CHEST 2 VIEWS INDICATION: Chest pain TECHNIQUE: XR CHEST 2 VIEWS COMPARISON: No priors available. IMPRESSION: FINDINGS/IMPRESSION: Lungs are clear. No pleural effusion orpneumothorax. Cardiac silhouette and bones are normal. -------- FINAL REPORT -------- Dictated By: TANISHA ENNIS Dictated Date: 04/14/2025 07:59 ET Assigned Physician: TANISHA ENNIS Reviewed and Electronically Signed By: TANISHA ENNIS Signed Date: 04/14/2025 08:09 ET Workstation ID: [id number] Transcribed By: Self Edit Transcribed Date: 04/14/2025 07:59 ET us Cassie Price MD IMG XR PROCEDURES Final Result * Troponin I high sensitivity (04/13/2025 4:08 PM EST) Only the most recent of2 resultswithin the time period is included. [facility] High Sensitivity Troponin I 3 <=53 ng/L 04/13/2025 4:49 PM EST [facility] Blood Venous blood specimen / Unknown Venipuncture / Unknown 04/13/2025 4:08 PM EST 04/13/2025 4:23 PM EST us Cassie Price MD LAB BLOOD ORDERABLES Final Resul t [facility] [address] [place] [address], [place] [phone] * CBC auto differential (04/13/2025 12:27 PM EST) [facility] WBC 8.0 4.8 - 10.8 K/mcL LAB HEMETOLOGY METHOD 04/13/2025 12:47 PM EST [facility] RBC 5.40 4.50 - 5.50 M/mcL LAB HEMETOLOGY METHOD 04/13/2025 12:47 PM [facility] Hemoglobin 15.1 13.5 - 17.5 g/dL LAB HEMETOLOGY METHOD 04/13/2025 12:47 PM [facility] Hematocrit 44.0 42.0 - 54.0 % LAB HEMETOLOGY METHOD 04/13/2025 12:47 PM [facility] MCV 81.3 79.0 - 98.0 FL LAB HEMETOLOGY METHOD 04/13/2025 12:47 PM [facility] MCH 27.9 27.0 - 32.0 pcg LAB HEMETOLOGY METHOD 04/13/2025 12:47 PM [facility] MCHC 34.3 32.0 - 37.0 g/dL LAB HEMETOLOGY METHOD 04/13/2025 12:47 PM [facility] RDW 11.8 11.0 - 15.0 % LAB HEMETOLOGY METHOD 04/13/2025 12:47 PM [facility] Platelets 227 130 - 400 K/mcL LAB HEMETOLOGY METHOD 04/13/2025 12:47 PM [facility] MPV 10.8 7.0 - 11.0 FL LAB HEMETOLOGY METHOD 04/13/2025 12:47 PM [facility] NRBC 0.0 <1.0 % LAB HEMETOLOGY METHOD 04/13/2025 12:47 PM [facility] NRBC Absolute 0.00 <0.10 K/mcL LAB HEMETOLOGY METHOD 04/13/2025 12:47 PM [facility] Neutrophils Relative 46.1 % LAB HEMETOLOGY METHOD 04/13/2025 12:47 PM [facility] Lymphocytes Relative 46.8 % LAB HEMETOLOGY METHOD 04/13/2025 12:47 PM EST [facility] Monocytes Relative 5.6 % LAB HEMETOLOGY METHOD 04/13/2025 12:47 PM [facility] Eosinophils Relative 1.1 % LAB HEMETOLOGY METHOD 04/13/2025 12:47 PM [facility] Basophils Relative 0.2 % LAB HEMETOLOGY METHOD 04/13/2025 12:47 PM [facility] Immature Granulocytes Relative 0.2 % LAB HEMETOLOGY METHOD 04/13/2025 12:47 PM [facility] Neutrophils Absolute 3.69 1.50 - 7.00 K/mcL LAB HEMETOLOGY METHOD 04/13/2025 12:47 PM [facility] Lymphocytes Absolute 3.75 1.00 - 5.00 K/mcL LAB HEMETOLOGY METHOD 04/13/2025 12:47 PM [facility] Monocytes Absolute 0.45 0.20 - 1.00 K/mcL LAB HEMETOLOGY METHOD 04/13/2025 12:47 PM [facility] Eosinophils Absolute 0.09 0.00 - 0.50 K/mcL LAB HEMETOLOGY METHOD 04/13/2025 12:47 PM [facility] Basophils Absolute 0.02 0.00 - 0.20 K/mcL LAB HEMETOLOGY METHOD 04/13/2025 12:47 PM [facility] Immature Granulocytes Absolute 0.02 0.00 - 0.03 K/mcL LAB HEMETOLOGY METHOD 04/13/2025 12:47 PM [facility] Blood Venous blood specimen / Unknown Venipuncture / Unknown 04/13/2025 12:27 PM EST 04/13/2025 12:39 PM EST us Cassie Price MD LAB BLOOD ORDERABLES Final Resul t [facility] [address] [place] [address], [place] [phone] * B-type natriuretic peptide (04/13/2025 12:27 PM EST) [facility] BNP 2 <=100 pcg/mL 04/13/2025 1:39 PM EST [facility] Blood Venous blood specimen / Unknown Venipuncture / Unknown 04/13/2025 12:27 PM EST 04/13/2025 12:39 PM EST Narrative [facility] - 04/13/2025 1:39 PM EST Over the counter supplements containing high doses of biotin may interfere with this assay. If interference is suspected, patients shoud be retested after refraining from biotin supplements for 72 hours. us Cassie Price MD LAB BLOOD ORDERABLES Final Resul t Performing Organization Address City/[facility]/ZIP Co de Phone Number [facility] [address] [place] [address], [place] [phone] * Magnesium (04/13/2025 12:27 PM EST) [facility] Magnesium 2.0 1.9 - 2.6 mg/dL 04/13/2025 1:38 PM EST [facility] Blood Venous blood specimen / Unknown Venipuncture / Unknown 04/13/2025 12:27 PM EST 04/13/2025 1:37 PM EST us Cassie Price MD LAB BLOOD ORDERABLES Final Resul t [facility] [address] [place] [address], [place] [phone] * Comprehensive metabolic panel (04/13/2025 12:27 PM EST) [facility] Sodium 140 133 - 145 mmol/L 04/13/2025 1:38 PM EST [facility] Potassium 4.0 3.5 - 5.5 mmol/L 04/13/2025 1:38 PM [facility] Chloride 105 96 - 110 mmol/L 04/13/2025 1:38 PM [facility] CO2 27 21 - 32 mmol/L 04/13/2025 1:38 PM [facility] Anion Gap 8 3 - 11 04/13/2025 1:38 PM [facility] Glucose 96 70 - 100 mg/dL 04/13/2025 1:38 PM [facility] BUN 11 5 - 25 mg/dL 04/13/2025 1:38 PM [facility] Creatinine 1.00 0.70 - 1.30 mg/dL 04/13/2025 1:38 PM [facility] eGFR 99 >=60 mL/min/1. 73m2 04/13/2025 1:38 PM [facility] Comment:Calculation based on the Chronic Kidney Disease Epidemiology Collaboration (CKD-EPI) equation refit without adjustment for race. BUN/Creatinine Ratio 11.0 04/13/2025 1:38 PM [facility] Calcium 9.3 8.5 - 10.5 mg/dL 04/13/2025 1:38 PM [facility] AST (SGOT) 26 10 - 42 unit/L 04/13/2025 1:38 PM [facility] ALT (SGPT) 26 10 - 60 unit/L 04/13/2025 1:38 PM [facility] Alkaline Phosphatase 62 42 - 121 unit/L 04/13/2025 1:38 PM [facility] Total Protein 7.5 6.0 - 8.0 g/dL 04/13/2025 1:38 PM [facility] Albumin 4.5 3.2 - 5.0 g/dL 04/13/2025 1:38 PM [facility] Total Bilirubin 0.3 0.0 - 1.4 mg/dL 04/13/2025 1:38 PM EST [facility] Blood Venous blood specimen / Unknown Venipuncture / Unknown 04/13/2025 12:27 PM EST 04/13/2025 1:37 PM EST Cassie Price MD LAB BLOOD ORDERABLES Final Resul t Performing Organization Address [facility] Co de Phone Number [facility] [address] [place] [address], * ECG 12 lead (04/13/2025 12:20 PM EST) Ventricular Rate ECG 83 BPM GEMUSE Atrial Rate 83 BPM GEMUSE P-R Interval 148 ms GEMUSE QRS Duration 94 ms GEMUSE Q-T Interval 348 ms GEMUSE QTc 408 ms GEMUSE P Wave [place] 59 degrees GEMUSE R [place] 49 degrees GEMUSE T [place] 47 degrees GEMUSE ECG Interpretation Normal sinus rhythm Normal ECG No previous ECGs available Confirmed by Gregorio MEADOWS JAMES ([id number]) on 04/13/2025 3:27:59 PM GEMUSE 04/13/2025 12:2 0 PM EST 04/13/2025 3:27 PM EST dJ Gomez MD ECG ORDERABLES Final Resu lt Performing Organization Address [facility] Co de Phone Number GEMUSE from Last 3 Months Insurance [facility] Care Teams Tinsel Machine Operator Relationship Specialty Start Date End Date Stephen Rogers NP [address] [facility] IDAILA Maki PCP - General 09/13/22
--- NOTE | 2025-04-19 07:59 | MHC.PC.OV ---
Intake Visit Reasons: xray Results, work note Allergies sumatriptan Allergy (Severe, Verified 02/21/25 08:16) Tachycardia, facial numbness atorvastatin Adverse Reaction (Mild, Verified 02/21/25 08:16) pain pollen Allergy (Unknown, Uncoded 08/11/24 14:51) rASH, sob tuna Allergy (Unknown, Uncoded 08/11/24 14:51) anaphylaxis Tobacco use date assessed: 01/27/25 Dental Screening Dental Screen Date: 01/27/25 HPI xray Results, work note HPI Details History of Present Illness The patient is a 35 year old individual presenting for follow-up after a recent emergency room visit for weakness and dizziness. In the ER, a full workup was conducted, including a bedside echocardiogram, chest x-ray, electrolytes, EKG, and BNP, which were all normal except for hypokalemia. The episode was attributed to dehydration, as the patient reported not eating or drinking anything for an entire day while working. A slightly low glucose level was also noted at that time. The patient has a family history of heart disease and has been seen by a user support analyst in the past. A prior echocardiogram and coronary CT were negative, and the patient was cleared from a cardiac standpoint. The patient now reports feeling better and understands the need for regular fluid intake and meals. Review of Systems - General: Reports recent episode of weakness. - Neurological: Reports recent episode of dizziness. Plan 1. Dehydration The patient's recent symptoms of weakness and dizziness are attributed to dehydration and associated hypoglycemia from inadequate oral intake. The patient has been counseled on and understands the importance of maintaining adequate daily fluid intake and regular meals. The patient feels better and is cleared to return to work next Friday with a provided note. 2. Hypokalemia The patient was found to have mild hypokalemia during the recent ER visit. A lab draw will be performed this week to recheck electrolyte levels. 3. Family History Of Other Diseases Of The Circulatory System The patient has a family history of heart disease, but a prior comprehensive cardiology evaluation including an echo and a negative coronary CT was reassuring. The recent ER workup also showed no acute cardiac issues. No further cardiac workup is indicated at this time. Discussion Notes I discussed with the patient the findings from the recent emergency room visit. I explained that the symptoms of weakness and dizziness were attributed to dehydration and hypoglycemia from not eating or drinking for an entire day. We reviewed that the ER workup was extensive and negative, aside from mild hypokalemia, and that prior cardiac evaluations were also negative. The patient confirmed understanding of the need to increase daily fluid intake and eat regularly. I informed the patient of the plan to obtain follow-up labs this week and provided a note to return to work. Patient Instructions - Make sure to drink plenty of fluids every day and eat regular meals to avoid getting weak or dizzy again. - You will need to have blood work done this week to recheck your potassium levels. - You can return to work starting next Friday. [facility] Medical History Bacterial conjunctivitis of left eye Otitis externa Chronic pain in left shoulder COVID Tension headache Asthma No known health problems Surgical History S/P appendectomy Family History Father Hypertension Diabetes Substance use disorder Mother No problems noted. Paternal Grandfather Diabetes Paternal Grandfather Substance use disorder Maternal Aunt Substance use disorder Maternal Grandmother Substance use disorder Paternal Aunt Substance use disorder Brother FH: heart attack Social History Household Members: Spouse and Family Housing: House Do you presently have visiting nurse or other home services: No Alcohol intake: never Patient Tobacco Use Status: Former Tobacco user e-Cigarette/Vaping Use: Currently Using Second Hand Smoke Exposure: No service: No Current occupational status: employed Cognitive needs: No Hearing needs: No Vision needs: No Questionnaire Thrive Questionnaire Date Thrive assessed: 01/03/24 AUDIT C Alcohol Use Questionnaire (AUDIT-C) 2. How many drinks containing alcohol do you have on a typical day when you are drinking?: 1 or 2 3. How often do you have six or more drinks on one occasion?: Never Total Score: 0 MELIDA-7 AMB Questionnaire MELIDA-7 Date MELIDA - 7 assessed: 01/27/25 Source: Developed by Drs. August Galindo, Rekha Goodwin, Thomas Sanabria and colleagues, with an educational fady from [employer]. Physical exam (Primary Care) Tobacco/Smoking Status: Tobacco use Status Tobacco use date assessed 01/27/25 01/27/25 08:42 Patient Tobacco Use Status Former Tobacco user 02/21/25 08:13 e-Cigarette/Vaping Use Currently Using 01/27/25 08:42 Thrive Assessment: Date of Thrive Assessment Date Thrive assessed 01/03/24 01/27/25 08:42 Telehealth Telehealth Telehealth Platform: [employer] Location of provider rendering services: practice address Location of patient: address on file Patient Identification confirmed using: Name, : Yes Telehealth method: video Patient verbally consented to treatment: Yes Patient verbally consented to billing insurance company: Yes Patient informed of any privacy concerns related to visit: Yes Minutes spent on Phone/Video with Pt.: 22 Coding Level of Care Code Est Pt Level 4 (79841) Diagnoses Hypokalemia E87.6 Dehydration E86.0 Hypoglycemia E16.2 Assessment & Plan Assessment & Plan (1) Hypokalemia: Code(s): E87.6 - Hypokalemia Category: Medical (2) Dehydration: Code(s): E86.0 - Dehydration Category: Medical (3) Hypoglycemia: Code(s): E16.2 - Hypoglycemia, unspecified Category: Medical Plan . Orders: Orders Comprehensive [place]. Panel Fast Today E86.0 - Dehydration Complete Blood Count Auto Diff Today E86.0 - Dehydration TSH reflex Free T4 Today E86.0 - Dehydration UA CC w/rflx Micro + Cult Today E86.0 - Dehydration Lipid Panel Today E86.0 - Dehydration Medications: New hydroxyzine HCl 50 mg PO BID PRN 60 tabs 2RF itching 30 days
== END 2025-04-19 08:06 | disposition home or self-care (01) ==
LOC: HO.HMCC 06:31
PROVIDERS: PCP Nurse Practitioner Family; Visit Provider Nurse Practitioner Family
DX: E87.6 Hypokalemia (principal); E86.0 Dehydration; E16.2 Hypoglycemia, unspecified

== ENCOUNTER 2025-04-27 11:02 | Outpatient (AMB) | payer OTHER, SELFPAY ==
[2025-04-27 11:10] VITALS: BP 122/74; PULSE 84; O2SAT 97; BMI 28.2
--- NOTE | 2025-04-27 11:10 | AM.OFFWIN_ITS ---
Intake Vital Signs 04/27/25 11:10 Height 5 ft 1 in Weight 149 lb BMI 28.2 BP 122/74 Blood Pressure Location Lt brachial Position Sitting Pulse 84 Pulse Source Pulse Oximeter Pulse Oximetry (%) 97 Oxygen Delivery Method Room Air Intake Visit Reasons: EP Right eye irritation Intake Note: Patient presents c/o right eye redness x3 weeks. Patient Tobacco Use Status: Former Tobacco user Allergies sumatriptan Allergy (Severe, Verified 04/27/25 11:12) Tachycardia, facial numbness atorvastatin Adverse Reaction (Mild, Verified 04/27/25 11:12) pain pollen Allergy (Unknown, Uncoded 04/27/25 11:12) rASH, sob tuna Allergy (Unknown, Uncoded 04/27/25 11:12) anaphylaxis HPI HPI Comments History of Present Illness Details History of Present Illness - The patient is a 35 year old individua l presenting with a unilateral eye complaint of three weeks' duration. - Symptoms include a bloodshot appearanc e, swelling of the inner tear ducts, and blurry vision in the affected eye. - The patient denies pain but reports a feeling of pressure when looking ilaterally. - The patient also reports a sensation o f dryness in the eye. - The patient denies any morning crustin g, discharge, or eye injury. - The patient attempted self-treatment w ith Benadryl and eye drops, but these interventions did not provide relief and made the eye more bloodshot. - The patient does not have a regular ey e doctor. - He denies any trauma, FB, runny nose, congestion, BYNUM, blurry or double vision. Physical Exam General: Cooperative, healthy appearing, comfortable, no acute distress and well developed Orientation: Patient oriented x3 Limitations: No limitations Head: Normal to inspection Ears: Hearing grossly normal bilaterally Nose: Normal external nose present Face and sinus: Normal facial exam Eyes: Appearance abnormal. Sclera and conjunctiva is erythematous. No tearing, crusting or FB noted. Pupils are 2mm bilaterally. Red reflex is noted. PERRLA, EOMI. No hordeoulm noted. Neck: Normal visual inspection and Yes full ROM Respiratory: Normal respiratory effort and able to speak in complete sentences. Clear to auscultation bilaterally Cardiovascular: Regular rate and rhythm. Normal S1 and S2 Skin: No rashes or lesions noted Patient was informed and verbally consented to the use of an ambient scribe for clinic note documentation during this visit. [facility] Medical History Bacterial conjunctivitis of left eye Otitis externa Chronic pain in left shoulder COVID Tension headache Asthma No known health problems Surgical History S/P appendectomy Family History Father Hypertension Diabetes Substance use disorder Mother No problems noted. Paternal Grandfather Diabetes Paternal Grandfather Substance use disorder Maternal Aunt Substance use disorder Maternal Grandmother Substance use disorder Paternal Aunt Substance use disorder Brother FH: heart attack Social History Household Members: Spouse and Family Housing: House Do you presently have visiting nurse or other home services: No Alcohol intake: never Patient Tobacco Use Status: Former Tobacco user e-Cigarette/Vaping Use: Currently Using Second Hand Smoke Exposure: No service: No Current occupational status: employed Cognitive needs: No Hearing needs: No Vision needs: No Review of Systems Const All systems reviewed & are unremarkable except as noted in HPI and below Physical Exam Vital Signs: Last Vital Signs Pulse 84 04/27/25 11:10 BP 122/74 04/27/25 11:10 Pulse Ox 97 04/27/25 11:10 Oxygen Delivery Method Room Air 04/27/25 11:10 BMI result Body Mass Index 28.2 Assessment & Plan Assessment & Plan (1) Redness of eye, right: Code(s): H57.89 - Other specified disorders of eye and adnexa Plan DD includes conjunctivitis vs allergic conjunctivitis, wlthough its unilateral vs scleritis vs episcleritis vs iritis vs uvelitis vs FB vs blocked tear duct plan - A trial of antibiotic eye drops is prescribed, to be administered four times daily for one week. - If symptoms improve within two days, it is likely a lingering infection and treatment may be discontinued. - If there is no improvement after two days, the patient is advised to see an automation specialist for further evaluation\ - The patient was provided with a list of ophthalmologists for potential follow- up care. - can f/u with his PCP if no resolution Medications: New neomycin-polymyxin B-dexameth 3.5mg/mL-10,000 unit/mL-0.1 % 1 drp ophthalmic (eye) Q6H 5 mL 0RF 5 days Coding Level of Care Code Est Pt Level 3 (37047) Diagnoses Redness of eye, right H57.89
--- OUTSIDE RECORDS SUMMARY | 2025-04-27 13:03 | XMS_ITS | Clinical Summary ---
Author Organization [facility] Address [address] [address] Phone Care Team Providers Care Instant Powder Supervisor Name Role Phone Stephen Rogers NP Primary [...] topic Medical Devices Not on file Insurance [facility] [address] [place] [address] [employer] [facility] [place] [address] [employer] [facility] [employer] [facility] [place] [place] [address] [place] [address] [employer] [employer] [facility] [employer] Care Teams Instant Powder Supervisor Relationship Specialty Start Date End Date Stephen Rogers NP [facility] [place] [address] PCP - General Family Medicine 10/31/21 Additional Source Comments The information contained in this document represents components of the legal health record. It is not the complete legal health record.[facility]
--- OUTSIDE RECORDS SUMMARY | 2025-04-27 13:03 | XMS_ITS | Clinical Summary ---
Author Organization [facility] Address [address] [place] [address] Phone Care Team Providers Care Boom Operator Name Role Phone Stephen Rogers NP Primary Care Provider Allergies Active Allergy Reactions Criticality Noted Date Comments Sumatriptan 04/13/2025 Medications No known medications Encounters Date Type Department Care Team Description 04/13/2025 3:20 PM EST - 04/13/2025 6:59 PM EST Emergency [facility] Emergency [address] [place] [address] Jd Gomez MD Chest pain, [...] Signed Date: 04/14/2025 08:09 ET Workstation ID: [id number] Transcribed By: Self Edit Transcribed Date: 04/14/2025 [...] Signed Date: 04/14/2025 08:09 ET Workstation ID: [id number] Transcribed By: Self Edit Transcribed Date: 04/14/2025 07:59 ET us Cassie Price MD IMG XR PROCEDURES Final Result * Troponin I high sensitivity (04/13/2025 4:08 PM EST) Only the most recent of2 resultswithin the time period is included. [facility] High Sensitivity Troponin I 3 <=53 ng/L 04/13/2025 4:49 PM EST [facility] Blood Venous blood specimen / Unknown Venipuncture / Unknown 04/13/2025 4:08 PM EST 04/13/2025 4:23 PM EST us Cassie Price MD LAB BLOOD ORDERABLES Final Resul t [facility] [address] [place] [address], [place] [phone] * CBC auto differential (04/13/2025 12:27 PM EST) [facility] WBC 8.0 4.8 - 10.8 K/mcL LAB HEMETOLOGY METHOD 04/13/2025 12:47 PM EST [facility] RBC 5.40 4.50 - 5.50 M/mcL LAB HEMETOLOGY METHOD 04/13/2025 12:47 PM [facility] Hemoglobin 15.1 13.5 - 17.5 g/dL LAB HEMETOLOGY METHOD 04/13/2025 12:47 PM [facility] Hematocrit 44.0 42.0 - 54.0 % LAB HEMETOLOGY METHOD 04/13/2025 12:47 PM [facility] MCV 81.3 79.0 - 98.0 FL LAB HEMETOLOGY METHOD 04/13/2025 12:47 PM [facility] MCH 27.9 27.0 - 32.0 pcg LAB HEMETOLOGY METHOD 04/13/2025 12:47 PM [facility] MCHC 34.3 32.0 - 37.0 g/dL LAB HEMETOLOGY METHOD 04/13/2025 12:47 PM [facility] RDW 11.8 11.0 - 15.0 % LAB HEMETOLOGY METHOD 04/13/2025 12:47 PM [facility] Platelets 227 130 - 400 K/mcL LAB HEMETOLOGY METHOD 04/13/2025 12:47 PM [facility] MPV 10.8 7.0 - 11.0 FL LAB HEMETOLOGY METHOD 04/13/2025 12:47 PM [facility] NRBC 0.0 <1.0 % LAB HEMETOLOGY METHOD 04/13/2025 12:47 PM [facility] NRBC Absolute 0.00 <0.10 K/mcL LAB HEMETOLOGY METHOD 04/13/2025 12:47 PM [facility] Neutrophils Relative 46.1 % LAB HEMETOLOGY METHOD 04/13/2025 12:47 PM [facility] Lymphocytes Relative 46.8 % LAB HEMETOLOGY METHOD 04/13/2025 12:47 PM EST [facility] Monocytes Relative 5.6 % LAB HEMETOLOGY METHOD 04/13/2025 12:47 PM [facility] Eosinophils Relative 1.1 % LAB HEMETOLOGY METHOD 04/13/2025 12:47 PM [facility] Basophils Relative 0.2 % LAB HEMETOLOGY METHOD 04/13/2025 12:47 PM [facility] Immature Granulocytes Relative 0.2 % LAB HEMETOLOGY METHOD 04/13/2025 12:47 PM [facility] Neutrophils Absolute 3.69 1.50 - 7.00 K/mcL LAB HEMETOLOGY METHOD 04/13/2025 12:47 PM [facility] Lymphocytes Absolute 3.75 1.00 - 5.00 K/mcL LAB HEMETOLOGY METHOD 04/13/2025 12:47 PM [facility] Monocytes Absolute 0.45 0.20 - 1.00 K/mcL LAB HEMETOLOGY METHOD 04/13/2025 12:47 PM [facility] Eosinophils Absolute 0.09 0.00 - 0.50 K/mcL LAB HEMETOLOGY METHOD 04/13/2025 12:47 PM [facility] Basophils Absolute 0.02 0.00 - 0.20 K/mcL LAB HEMETOLOGY METHOD 04/13/2025 12:47 PM [facility] Immature Granulocytes Absolute 0.02 0.00 - 0.03 K/mcL LAB HEMETOLOGY METHOD 04/13/2025 12:47 PM [facility] Blood Venous blood specimen / Unknown Venipuncture / Unknown 04/13/2025 12:27 PM EST 04/13/2025 12:39 PM EST us Cassie Price MD LAB BLOOD ORDERABLES Final Resul t [facility] [address] [place] [address], [place] [phone] * B-type natriuretic peptide (04/13/2025 12:27 PM EST) [facility] BNP 2 <=100 pcg/mL 04/13/2025 1:39 PM EST [facility] Blood Venous blood specimen / Unknown Venipuncture / Unknown 04/13/2025 12:27 PM EST 04/13/2025 12:39 PM EST Narrative [facility] - 04/13/2025 1:39 PM EST Over the counter supplements containing high doses of biotin may interfere with this assay. If interference is suspected, patients shoud be retested after refraining from biotin supplements for 72 hours. us Cassie Price MD LAB BLOOD ORDERABLES Final Resul t Performing Organization Address City/[facility]/ZIP Co de Phone Number [facility] [address] [place] [address], [place] [phone] * Magnesium (04/13/2025 12:27 PM EST) [facility] Magnesium 2.0 1.9 - 2.6 mg/dL 04/13/2025 1:38 PM EST [facility] Blood Venous blood specimen / Unknown Venipuncture / Unknown 04/13/2025 12:27 PM EST 04/13/2025 1:37 PM EST us Cassie Price MD LAB BLOOD ORDERABLES Final Resul t [facility] [address] [place] [address], [place] [phone] * Comprehensive metabolic panel (04/13/2025 12:27 PM EST) [facility] Sodium 140 133 - 145 mmol/L 04/13/2025 1:38 PM EST [facility] Potassium 4.0 3.5 - 5.5 mmol/L 04/13/2025 1:38 PM [facility] Chloride 105 96 - 110 mmol/L 04/13/2025 1:38 PM [facility] CO2 27 21 - 32 mmol/L 04/13/2025 1:38 PM [facility] Anion Gap 8 3 - 11 04/13/2025 1:38 PM [facility] Glucose 96 70 - 100 mg/dL 04/13/2025 1:38 PM [facility] BUN 11 5 - 25 mg/dL 04/13/2025 1:38 PM [facility] Creatinine 1.00 0.70 - 1.30 mg/dL 04/13/2025 1:38 PM [facility] eGFR 99 >=60 mL/min/1. 73m2 04/13/2025 1:38 PM [facility] Comment:Calculation based on the Chronic Kidney Disease Epidemiology Collaboration (CKD-EPI) equation refit without adjustment for race. BUN/Creatinine Ratio 11.0 04/13/2025 1:38 PM [facility] Calcium 9.3 8.5 - 10.5 mg/dL 04/13/2025 1:38 PM [facility] AST (SGOT) 26 10 - 42 unit/L 04/13/2025 1:38 PM [facility] ALT (SGPT) 26 10 - 60 unit/L 04/13/2025 1:38 PM [facility] Alkaline Phosphatase 62 42 - 121 unit/L 04/13/2025 1:38 PM [facility] Total Protein 7.5 6.0 - 8.0 g/dL 04/13/2025 1:38 PM [facility] Albumin 4.5 3.2 - 5.0 g/dL 04/13/2025 1:38 PM [facility] Total Bilirubin 0.3 0.0 - 1.4 mg/dL 04/13/2025 1:38 PM EST [facility] Blood Venous blood specimen / Unknown Venipuncture / Unknown 04/13/2025 12:27 PM EST 04/13/2025 1:37 PM EST Cassie Price MD LAB BLOOD ORDERABLES Final Resul t Performing Organization Address [facility] Co de Phone Number [facility] [address] [place] [address], * ECG 12 lead (04/13/2025 12:20 PM EST) Ventricular Rate ECG 83 BPM GEMUSE Atrial Rate 83 BPM GEMUSE P-R Interval 148 ms GEMUSE QRS Duration 94 ms GEMUSE Q-T Interval 348 ms GEMUSE QTc 408 ms GEMUSE P Wave [place] 59 degrees GEMUSE R [place] 49 degrees GEMUSE T [place] 47 degrees GEMUSE ECG Interpretation Normal sinus rhythm Normal ECG No previous ECGs available Confirmed by Gregorio MEADOWS JAMES ([id number]) on 04/13/2025 3:27:59 PM GEMUSE 04/13/2025 12:2 0 PM EST 04/13/2025 3:27 PM EST Jd Gomez MD ECG ORDERABLES Final Resu lt Performing Organization Address [facility] Co de Phone Number GEMUSE from Last 3 Months Insurance [facility] Care Teams Boom Operator Relationship Specialty Start Date End Date Stephen Rogers NP [address] [facility] IDALIA Maki PCP - General 09/13/22
--- OUTSIDE RECORDS SUMMARY | 2025-04-27 13:03 | XMS_ITS | Clinical Summary ---
Author Organization [facility] Address [address] [place] [address] Care Team Providers Care Graining Machine Operator Name Role Phone Unavailable Primary Care Provider [...]
--- OUTSIDE RECORDS SUMMARY | 2025-04-27 13:03 | XMS_ITS | Encounter Summary ---
Author Organization [facility] Address [address] [facility] [address] [place] [address] Phone Care Team Providers Care Custom Leather Products Maker Name Role Phone Stephen Rogers NP Primary Care Provider + Encounter Details Date Type Department Care Team (Late st Contact Info) Description 10/31/2021 Procedure Pass [facility], Ct Scan - [facility] [address] [place] [address] Social History Tobacco Use Types Packs/Day Years [...] 11:32 AM EDT Christina Rodriguez RN * [place] Suicide Severity Rating Scale (Screener/Recent Self-Report) Question [...] on filedocumented in this encounter Care Teams Custom Leather Products Maker Relationship Specialty Start Date End Date Stephen Rogers NP [facility] [place] [address] PCP - General Family Medicine 10/31/21 documented as of this encounter Additional Source Comments The information contained in this document represents components of the legal health record. It is not the complete legal health record.[facility]
== END 2025-04-27 11:45 | disposition home or self-care (01) ==
PROVIDERS: PCP Nurse Practitioner Family; Visit Provider Physician Assistant Medical
DX: H57.89 Other specified disorders of eye and adnexa (principal)